=== PATIENT | male | born 1955 | race Caucasian/White ===

== ENCOUNTER 2016-06-12 15:13 | Emergency (ER) | payer OTHER ==
[~2016-06-12] VITALS: Ht 167.6 cm; Wt 54.4 kg
[~2016-06-12 15:13] MED LIST: AGGRENOX 25 MG1 EACH PO; AMOX-CLAV 875-1 EACH PO; AUGMENTIN 875875 MG PO; CIPRO 500MG TA500 MG PO; DEXILANT60 M1 PO; FLOMAX0.4 M1 PO; HCTZ-METOPROLOL1 TAB PO; KEFLEX500 MG PO; LISINOPRIL20 M1 PO; PERCOCET 325 MG1 TA2 PO; SIMVASTATIN40 M1 PO; TOPROL XL100 M1 PO; TYLENOL TAB 32325 MG PO
[2016-06-12 16:04] LABS: ABSOLUTE BASOPHIL COUNT 0 /CUMM (0.0-0.2); ABSOLUTE EOSINOPHIL COUNT 0 /CUMM (0.0-0.7); ABSOLUTE GRANULOCYTE CT 10.4 /CUMM (1.4-6.5); ABSOLUTE LYMPH COUNT 1.3 /CUMM (1.2-3.4); BASOPHIL % 0.3 % (0.0-2.0); EOSINOPHIL % 0.2 % (0-5); GRANULOCYTE % 81.6 % (42.2-75.2); HEMATOCRIT 41.7 % (42-52); MEAN CORPUSCULAR HGB 30.6 PG (27.0-31.0); MEAN CORPUSCULAR HGB CONC 33.2 G/DL (33.0-37.0); MEAN CORPUSCULAR VOLUME 92.1 FL (80.0-94.0); MEAN PLATELET VOLUME 9.3 FL (7.4-10.4); PLATELET COUNT 208 /CUMM (130-400); RBC DISTRIBUTION WIDTH 13.6 % (11.5-14.5); RED BLOOD CELL CT 4.53 /CUMM (4.70-6.10); WHITE BLOOD CELL COUNT 12.7 /CUMM (4.8-10.8)
--- NOTE | 2016-06-12 16:22 | ED AMS/SEIZURE/WEAK/DIZZY ---
History of Present Illness General Chief Complaint: Altered Mental Status Stated Complaint: BIBA FOR ?AMS Source: patient, family Exam Limitations: no limitations Vital Signs & Intake/Output Vital Signs & Intake/Output ED Intake and Output 06/13 0000 06/12 1200 Intake Total 0 Output Total Balance 0 Intake, Oral 0 Patient 120 lb Weight Weight Reported by Patient Measurement Method Allergies Coded Allergies: egg (DIRRHEA 06/12/16) Reconcile Medications Dexlansoprazole (Dexilant) 60 MG CAP.DR.BP 1 CAP PO DAILY GI (Reported) Dipyridamole W/ Aspirin (Aggrenox 25 MG-200 MG Capsule) 25 MG-200 MG CPMP.12HR 1 CAP PO BID BLOOD THINNER Doxycycline Hyclate 100 MG TABLET 1 TAB PO BID bronchitis/pna Lisinopril 20 MG TABLET 1 TAB PO DAILY BP (Reported) Metoprolol Succ XL (Toprol XL) 100 MG TAB.ER.24H 1 TAB PO DAILY blood pressure Simvastatin (Simvastatin*) 40 MG TABLET 1 TAB PO QPM CHOLESTEROL (Reported) Tamsulosin HCl (Flomax) 0.4 MG CAP.ER.24H 1 CAP PO DAILY PROSTATE (Reported) Triage Note: PT BIBA FROM HOME FOR AMS. PT'S VISITING NURSE SAW HIM TODAY AND NOTED HE WAS MORE ALTERED THAN USUAL. PT HAS HISTORY OF TIA AND MENTALLY CHALLENGED. PER REPORT, PT'S APARTMENT SMELLED OF URINE, PT ARRIVES INCONTINENT OF URINE. Triage Nurses Notes Reviewed? yes Onset: Abrupt Duration: day(s):, constant Timing: recent history No Modifying Factors: none HPI: 60-year-old male with a history of [place] was brought in for reportedly increased confusion for the past couple days. Patient was sent in by his nurse that comes in on Mondays to take care of him and felt that he was mildly more confused than usual because he did not recognize her. Patient lives by himself most of the days. There is been no reports of any fever chills vomiting or severe coughing abdominal pain. There is been no slurring of words or facial droop reported. The main confusion part was at the fact that the patient did not recognize his nurse. He has a history of MR. Denies any other associated symptoms. (ROX DE ANDA) Past History Travel History Traveled to [place] past 21 day No Medical History Any Pertinent Medical History? see below for history Neurological: TIA, MENTALLY CHALLENGED EENT: cataracts, glaucoma Cardiovascular: HTN, HIGH CHOLESTEROL Respiratory: asthma Gastrointestinal: diverticulitis, GERD, Reid's esophagus Hepatic: NONE Renal: benign prost hyperplasia Musculoskeletal: NONE Psychiatric: mentally challenged. 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 No (ROX DE ANDA) Review of Systems Review of Systems Constitutional: Reports: no symptoms. EENTM: Reports: no symptoms. Respiratory: Reports: no symptoms. Cardiovascular: Reports: no symptoms. GI: Reports: no symptoms. Genitourinary: Reports: no symptoms. Musculoskeletal: Reports: no symptoms. Skin: Reports: no symptoms. Neurological/Psychological: Reports: see HPI. Hematologic/Endocrine: Reports: no symptoms. Immunologic/Allergic: Reports: no symptoms. All Other Systems: Reviewed and Negative (ROX DE ANDA) Physical Exam Physical Exam General Appearance: well developed/nourished, no apparent distress, alert, awake Head: atraumatic, normal appearance Eyes: Left: other (chronic glaucoma). Right: PERRL. Ears, Nose, Throat: normal pharynx, normal ENT inspection, hearing grossly normal Neck: normal inspection, full range of motion Respiratory: normal breath sounds, no respiratory distress Cardiovascular: regular rate/rhythm Gastrointestinal: soft, non-tender Back: normal inspection Extremities: normal range of motion Neurologic/Psych: awake, alert, normal gait, normal mood/affect Skin: intact, normal color Core Measures ACS in differential dx? No CVA/TIA Diagnosis: No Severe Sepsis Present: No Septic Shock Present: No (ROX DE ANDA) Progress Differential Diagnosis: arrythmia, anemia, benign positional vertigo, CVA/stroke , dehydration, encephalitis, electrolyte imbalance, GI bleed, hypoglycemia, hypoxia, intracranial Hem., intracranial mass/tumor, meningitis, Meniere's disease, migraine LIN, multiple sclerosis, pneumonia, presyncope, post-traumatic vertigo, sepsis, seizure disorder, subarachnoid Hem., UTI/pyelo, vertebrobasilar insuff Plan of Care: Orders Procedure Date/time Status URINALYSIS 06/12 152 Complete TROPONIN LEVEL 06/12 152 Complete COMPREHENSIVE METABOLIC PANEL 06/12 152 Complete CBC WITHOUT DIFFERENTIAL 06/12 152 Complete EKG 06/12 152 Active Laboratory Tests 06/12/16 1655: Urine Color YEL, Urine Clarity CLEAR, Urine pH 6.0, Ur Specific [place] 1.015, Urine Protein NEG, Urine Ketones 15 H, Urine Nitrite NEG, Urine Bilirubin NEG, Urine Urobilinogen 0.2, Ur Leukocyte Esterase NEG, Ur Microscopic EXAM NOT REQUIRED, Urine Hemoglobin NEG, Urine Glucose NEG 06/12/16 1555: Anion Gap 12, Estimated GFR > 60, BUN/Creatinine Ratio 15.7, Glucose 93, Calcium 9.2, Total Bilirubin 0.6, AST 35, ALT 55, Alkaline Phosphatase 120, Troponin I < 0.01, Total Protein 7.6, Albumin 4.3, Globulin 3.3, Albumin/Globulin Ratio 1.3, CBC w Diff NO MAN DIFF REQ, RBC 4.53 L, MCV 92.1, MCH 30.6, RDW 13.6, MPV 9.3, Gran % 81.6 H, Lymphocytes % 10.3 L, Monocytes % 7.6, Eosinophils % 0.2, Basophils % 0.3, Absolute Granulocytes 10.4 H, Absolute Lymphocytes 1.3, Absolute Monocytes 1.0 H, Absolute Eosinophils 0, Absolute Basophils 0, PUBS MCHC 33.2 Diagnostic Imaging: Viewed by Me: CT Scan. Discussed w/RAD: CT Scan. Radiology Impression: SERVICE DATE: 06/12/16-1543 EXAM TYPE: CAT - CT HEAD WO IV CONTRAST EXAMINATION: CT HEAD WITHOUT CONTRAST CLINICAL INFORMATION: Altered mental status. Rule out CVA. COMPARISON: 01/19/2016 (MRI) and CT dated 2015 TECHNIQUE: Contiguous axial imaging was performed from the skull base to vertex without intravenous administration of contrast. Examination is somewhat limited due to motion artifact, most notably through the skull base. Motion artifact is present on repeated images through this region. DLP: 815.4 mGy-cm FINDINGS: There is no evidence of acute intracranial hemorrhage or territorial infarction. No abnormal mass effect or midline shift is seen. Dueñas to white matter differentiation is well preserved. No extra-axial fluid collections are identified. The ventricles are normal in size. Multiple areas of hypoattenuation in the subcortical and periventricular white matter are present, most commonly attributable to chronic microangiopathic changes. Encephalomalacia in the subinsular regions is again noted. The evaluation of the temporal poles is somewhat limited due to artifact from patient motion. The osseous structures and soft tissues are normal. The mastoid air cells and visualized portions of the paranasal sinuses are well aerated. IMPRESSION: No acute intracranial pathology. Evaluation level of the skull base is limited due to motion artifact. Moderate chronic microangiopathic white matter changes DICTATED BY: DOREEN SAAVEDRA MD DATE /TIME DICTATED:06/12/161640 GUEST SERVICES:[facility] Initial ED EKG: normal intervals, normal p-waves, normal sinus rhythm, rate (98) Comments: 06/12/2016 6:13:34 PM There is no focal signs of infection. Due to very mild cough patient covered with doxycycline. He clinically does not appear toxic appearing and is in no apparent distress. Patient able to ambulate here in the emergency room at his normal baseline. Safe to be discharged at this time. Follow-up with primary care doctor. pt seen and evlauated by dr reeder. ([facility]) Departure Departure Disposition: HOME OR SELF CARE Condition: Stable Clinical Impression Primary Impression: Altered mental status Referrals: FREDIS PAYNE,NANO Antoine (PCP/Family) Additional Instructions: Follow-up with primary care doctor. Return if any concerns worsening symptoms. Please go over all results of today's visit with your primary care doctor. Contact your primary care doctor to let them know you were here in the emergency room. There may be nonspecific findings which may not be related to your visit today here in the emergency room but may require further evaluation and chronic monitoring by your primary care doctor. If you had a laceration today the chance of foreign body always remains. You should follow-up with your primary care doctor for recheck in 3-5 days for a wound check. If you had an x-ray done there is a chance that a fracture could have been missed on initial read and you should follow-up with your primary care doctor for repeat x-rays if symptoms persist. If your blood pressure was elevated here in the emergency room please have rechecked by her primary care doctor within the next 48 hours by your primary care doctor. If you were prescribed a narcotic here in the emergency room or any type of controlled substances you're not allowed to drive while taking this medication or operate any type of heavy machinery. Narcotics can make you feel lightheaded dizziness nausea and can cause constipation. You may need to [employer] a stool softener. Thank you for choosing [facility] emergency room. Please return to the emergency room immediately if you have any other concerns worsening of symptoms. Departure Forms: Customer Survey General Discharge Information Prescriptions: Current Visit Scripts Doxycycline Hyclate 1 TAB PO BID #20 TAB (ROX DE ANDA) PA/DBA Co-Sign Statement Statement: ED Attending supervision documentation- [X] I saw and evaluated the patient. I have also reviewed all the pertinent lab results and diagnostic results. I agree with the findings and the plan of care as documented in the PA's/DBA's documentation. [] I have reviewed the ED Record and agree with the PA's/DBA's documentation. [] Additions or exceptions (if any) to the PAs/DBA's note and plan are summarized below: [] (OLGA REEDER DO) PA/DBA Co-Sign Statement Statement: ED Attending supervision documentation- [X] I saw and evaluated the patient. I have also reviewed all the pertinent lab results and diagnostic results. I agree with the findings and the plan of care as documented in the PA's/DBA's documentation. [] I have reviewed the ED Record and agree with the PA's/DBA's documentation. [] Additions or exceptions (if any) to the PAs/DBA's note and plan are summarized below: [] (OLGA REEDER DO)
--- NOTE | 2016-06-12 16:50 | CT SCAN REPORT ---
EXAMINATION: CT HEAD WITHOUT CONTRAST CLINICAL INFORMATION: Altered mental status. Rule out CVA. COMPARISON: 01/19/2016 (MRI) and CT dated 01/18/2016 TECHNIQUE: Contiguous axial imaging was performed from the skull base to vertex without intravenous administration of contrast. Examination is somewhat limited due to motion artifact, most notably through the skull base. Motion artifact is present on repeated images through this region. DLP: 815.4 mGy-cm FINDINGS: There is no evidence of acute intracranial hemorrhage or territorial infarction. No abnormal mass effect or midline shift is seen. Dueñas to white matter differentiation is well preserved. No extra-axial fluid collections are identified. The ventricles are normal in size. Multiple areas of hypoattenuation in the subcortical and periventricular white matter are present, most commonly attributable to chronic microangiopathic changes. Encephalomalacia in the subinsular regions is again noted. The evaluation of the temporal poles is somewhat limited due to artifact from patient motion. The osseous structures and soft tissues are normal. The mastoid air cells and visualized portions of the paranasal sinuses are well aerated. IMPRESSION: No acute intracranial pathology. Evaluation level of the skull base is limited due to motion artifact. Moderate chronic microangiopathic white matter changes
[2016-06-12 17:50] VITALS: BP 128/70
[2016-06-12] MEDS ORDERED: DOXYCYCLINE HY100 M4 PO (18:11)
== END 2016-06-12 18:26 ==
LOC: ERH 15:13
PROVIDERS: Physician Assistant Medical
DX: R41.82 Altered mental status, unspecified (principal)
CPT/HCPCS: 81003; 93005; 93010

== ENCOUNTER 2016-07-28 09:46 | Observation (INO) | payer OTHER ==
[~2016-07-28] VITALS: Ht 167.6 cm; Wt 54.4 kg
[~2016-07-28 09:46] MED LIST changes: +DOXYCYCLINE HY100 M4 PO
--- NOTE | 2016-07-28 09:59 | ED GENERAL ADULT ---
History of Present Illness General Chief Complaint: Altered Mental Status Stated Complaint: AMS Source: patient, family Exam Limitations: clinical condition, confusion, dementia, poor historian Vital Signs & Intake/Output Vital Signs & Intake/Output Vital Signs Date Time Temp Pulse Resp B/P B/P Pulse O2 O2 Flow FiO2 Mean Ox Delivery Rate 07/29 2015 98.5 98 18 138/100 97 Room Air 07/28 1855 97.3 92 18 154/86 96 Room Air 07/28 1613 98.9 108 18 141/80 95 Room Air 07/28 1331 97.2 99 18 119/76 95 Room Air 07/28 0951 98.0 112 20 111/77 95 Room Air Allergies Coded Allergies: egg (DIRRHEA 06/12/16) Reconcile Medications Dexlansoprazole (Dexilant) 60 MG CAP.DR.BP 1 CAP PO DAILY GI (Reported) Dipyridamole W/ Aspirin (Aggrenox 25 MG-200 MG Capsule) 25 MG-200 MG CPMP.12HR 1 CAP PO BID BLOOD THINNER Lisinopril 20 MG TABLET 1 TAB PO DAILY BP (Reported) Metoprolol Succ XL (Toprol XL) 100 MG TAB.ER.24H 1 TAB PO DAILY blood pressure Simvastatin (Simvastatin*) 40 MG TABLET 1 TAB PO QPM CHOLESTEROL (Reported) Tamsulosin HCl (Flomax) 0.4 MG CAP.ER.24H 1 CAP PO DAILY PROSTATE (Reported) Triage Nurses Notes Reviewed? yes HPI: 07/28/16 61-year-old man presents to the emergency department for altered mental status right lower extremity weakness. According to the family, a doorknocker checked on him today and found him on the floor. It is unclear what time he fell but they did hear a thump. The patient was confused and brought to the emergency department for evaluation. The onset of the symptoms was abrupt, the duration is really unclear, the severity is significant as his symptoms required him to come to the emergency department for care. Past History Travel History Traveled to [place] past 21 day No Medical History Any Pertinent Medical History? see below for history Neurological: TIA, MENTALLY CHALLENGED EENT: cataracts, glaucoma Cardiovascular: HTN, HIGH CHOLESTEROL Respiratory: asthma Gastrointestinal: diverticulitis, GERD, Reid's esophagus Hepatic: NONE Renal: benign prost hyperplasia Musculoskeletal: NONE Psychiatric: mentally challenged. 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 No Review of Systems Review of Systems Constitutional: Denies: fever. EENTM: Reports: no symptoms. Respiratory: Denies: short of breath. Cardiovascular: Denies: chest pain. GI: Denies: abdominal pain. Genitourinary: Reports: no symptoms. Musculoskeletal: Reports: no symptoms. Skin: Denies: rash. Neurological/Psychological: Reports: anxiety, paresthesia, weakness. Hematologic/Endocrine: Denies: bruising, bleeding. Physical Exam Physical Exam General Appearance: alert, awake, anxious, moderate distress Head: atraumatic Eyes: Bilateral: other (irregular pupil left eye). Ears, Nose, Throat: normal pharynx Neck: normal inspection, supple Respiratory: normal breath sounds, chest non-tender, no respiratory distress Cardiovascular: regular rate/rhythm Peripheral Pulses: 4+ radial (R), 4+ radial (L) Gastrointestinal: non-tender Back: normal range of motion Extremities: pedal edema Neurologic/Psych: awake, alert, motor weakness Skin: intact, normal color, warm/dry Core Measures ACS in differential dx? No CVA/TIA Diagnosis: Yes NIH Stroke Scale: Total 5 Dt/Tm Last Known Well: No Date Last Known Well: 07/28/16 Neurological S/S of CVA: Acute Confusion, Dizziness, Difficulty Speaking, Weakness of Limb Symptom start date: 07/28/16 Reason tPA not ordered: Medical Contraindication Severe Sepsis Present: No Septic Shock Present: No Comment: The patient had a gag reflex and tolerated water Progress Differential Diagnoses I considered the following diagnoses in my evaluation of the patient: [TIA, CVA, intracranial bleed] Plan of Care: Orders Procedure Date/time Status Heart Healthy Diet 07/29 B Active Heart Healthy Diet 07/28 D Complete Teach/Educate 07/29 2027 Active Pain Treatment and Response 07/29 2027 Active Nutritional Intake, Monitor 07/29 2027 Active Isolation 07/29 2027 Active Patient Care Conference 07/29 2027 Active Activity/Ambulation 07/29 2027 Active Patient Data 07/28 1820 Active ED Holding Orders 07/28 1734 Active Vital Signs 07/28 1734 Active Code Status 07/[address] in observation 07/28 1733 Active Intake & Output 07/28 1349 Active Add-on Test (ER Only) 07/28 1018 Active TROPONIN LEVEL 07/28 1005 Complete PROTHROMBIN TIME 07/28 1005 Complete COMPREHENSIVE METABOLIC PANEL 07/28 1003 Complete CBC WITHOUT DIFFERENTIAL 07/28 1003 Complete EKG 07/28 1003 Active Laboratory Tests 07/28/16 1100: Anion Gap 11, Estimated GFR > 60, BUN/Creatinine Ratio 18.6, Glucose 97, Calcium 9.4, Total Bilirubin 0.4, AST 47, ALT 90 H, Alkaline Phosphatase 138 H, Troponin I < 0.01, Total Protein 7.4, Albumin 4.3, Globulin 3.1, Albumin/ Globulin Ratio 1.4, PT 11.5, INR 1.10 07/28/16 1005: CBC w Diff NO MAN DIFF REQ, RBC 4.39 L, MCV 92.5, MCH 30.8, RDW 12.6, MPV 9.3, Gran % 82.7 H, Lymphocytes % 9.7 L, Monocytes % 7.1, Eosinophils % 0.3, Basophils % 0.2, Absolute Granulocytes 10.1 H, Absolute Lymphocytes 1.2, Absolute Monocytes 0.9 H, Absolute Eosinophils 0, Absolute Basophils 0, PUBS MCHC 33.3 Initial ED EKG: sinus tachycardia, left axis deviation, nonspecific ST-T wave abnormalities Comments: CT scan of the head was unremarkable MRI showed no ischemic changes The patient continued to have right lower extremity weakness. He was subsequently placed in observation for neuro checks every 6 hours, neurology consultation, and fall risk monitoring. Departure Departure Disposition: STILL A PATIENT Condition: Stable Clinical Impression Primary Impression: TIA (transient ischemic attack) Referrals: FREDIS PAYNE,NANO Antoine (PCP/Family) Departure Forms: Customer Survey General Discharge Information Observation Note Spoke With: SUDEEP PAYNE,AMARI Physician Advisor Notified: PHIL PAYNE,MARY Antoine Place Patient In: Non-ED OBS Care Area Rationale for Observation: My rational for observation is as follows [neuro checks every 6 hours, telemetry monitoring, fall risk monitoring,]. Critical Care Note Critical Care Note Critical Care Time: non-applicable
--- NOTE | 2016-07-28 10:03 | NUR ---
PT TO ROOM 20 ON ARRIVAL. PT PLACED ON SAIL MAKER FOR EVAL, LABS DRAWN AND SENT, EKG DONE. PT UNDRESSED AND PLACED IN GOWN
--- NOTE | 2016-07-28 10:03 | NUR ---
PT BIBA FROM HOME FOR AMS. PT WAS LAST SEEN AT [facility] YESTERDAY. PT LIVES IN [facility] AND WAS FOUND TODAY ON THE FLOOR BY A DUARTEIGLENNY. PT HAS A HX OF TIAS AND MR. PT AMS IMPROVED ENROUTE PER EMS. PT ARRIVES TO ED ALERT BUT CONFUSED. PT KNOWS HE IS IN ER BUT DOES NOT RECALL TH YEAR. PT DENIES ANY COMPLAINTS. VSS
--- NOTE | 2016-07-28 10:16 | NUR ---
PT MORE ALERT AT THIS TIME , PT ALERT TO PERSON AND PLACE. PER SISTER AT BEDSIDE PT ACTING AT [facility]. PT WAS A ? FALL AT HOME FOUND ON FLOOR. PT DOES NOT RECALL WHAT HAPPEN. PT DENIES ANY INJURY OR PAIN. PT HAS NO OBVIOUS INJURY OR DEFORMITY UPON ASSESSMENT. PT AWAITNG LAB RESULTS AND CT SCAN
[2016-07-28 10:19] LABS: ABSOLUTE BASOPHIL COUNT 0 /CUMM (0.0-0.2); ABSOLUTE EOSINOPHIL COUNT 0 /CUMM (0.0-0.7); ABSOLUTE GRANULOCYTE CT 10.1 /CUMM (1.4-6.5); ABSOLUTE LYMPH COUNT 1.2 /CUMM (1.2-3.4); ABSOLUTE MONOCYTE COUNT 0.9 /CUMM (0.10-0.60); BASOPHIL % 0.2 % (0.0-2.0); EOSINOPHIL % 0.3 % (0-5); GRANULOCYTE % 82.7 % (42.2-75.2); HEMATOCRIT 40.7 % (42-52); MEAN CORPUSCULAR HGB 30.8 PG (27.0-31.0); MEAN CORPUSCULAR HGB CONC 33.3 G/DL (33.0-37.0); MEAN CORPUSCULAR VOLUME 92.5 FL (80.0-94.0); MEAN PLATELET VOLUME 9.3 FL (7.4-10.4); PLATELET COUNT 246 /CUMM (130-400); RBC DISTRIBUTION WIDTH 12.6 % (11.5-14.5); RED BLOOD CELL CT 4.39 /CUMM (4.70-6.10); WHITE BLOOD CELL COUNT 12.2 /CUMM (4.8-10.8)
--- NOTE | 2016-07-28 10:25 | NUR ---
LAB CALLED AND NEEDS A REDRAW OF THE BLUE TOP AND SST TUBE
--- NOTE | 2016-07-28 10:26 | NUR ---
PT TO CT SCAN WITH JAI ALAI PLAYER
--- NOTE | 2016-07-28 11:00 | NUR ---
PT BACK FROM CT WITH GAS ATTENDANT, SST AND BLUE TOP REDRAWN BY MST
--- NOTE | 2016-07-28 11:01 | CT SCAN REPORT ---
EXAMINATION: CT HEAD WITHOUT CONTRAST CLINICAL INFORMATION: Altered mental status COMPARISON: 06/12/2016 TECHNIQUE: Contiguous axial imaging was performed from the skull base to vertex without intravenous contrast. DLP: 807 mGy-cm. FINDINGS: Motion somewhat limits the evaluation. There is no evidence of acute intracranial hemorrhage or territorial infarction. No abnormal mass effect or midline shift is seen. Dueñas to white matter differentiation is well preserved. No extra-axial fluid collections are identified. No hydrocephalus. Proportional prominence of the ventricles and sulcal spaces is consistent with mild volume loss. Patchy periventricular and deep white matter hypoattenuation is consistent with moderate small vessel ischemic changes. The osseous structures and soft tissues are normal. There is mild opacification of the ethmoid air cells. Minimal opacification of the left maxillary sinus. The mastoid air cells and visualized portions of the paranasal sinuses are otherwise well aerated. IMPRESSION: No acute intracranial pathology. Mild volume loss with moderate small vessel ischemic changes.
--- NOTE | 2016-07-28 11:04 | NUR ---
SST AND BLUE TOP SENT AT THIS TIME.
[2016-07-28 11:14] LABS: PT 11.5 SEC (9.4-12.5)
--- NOTE | 2016-07-28 13:48 | NUR ---
FOOD TRAY ORDERED.
--- NOTE | 2016-07-28 15:22 | NUR ---
PT TO MRI BY STRETCHER.
--- NOTE | 2016-07-28 16:06 | NUR ---
PT RETURNED FORM MRI, AWAITING RESULTS.
--- NOTE | 2016-07-28 16:28 | MRI REPORT ---
EXAMINATION: MR BRAIN WITHOUT CONTRAST CLINICAL INFORMATION: Altered mental status. COMPARISON: Head CT from earlier the same day. MRI of the brain from 01/19/2016 TECHNIQUE: MRI of the brain without contrast was obtained using routine sequences. FINDINGS: The study is motion degraded. The axial T2-weighted images are nondiagnostic. No acute brain ischemia. No evidence of susceptibility artifact to suggest acute or chronic blood products. There is moderate scattered T2 prolongation in the bihemispheric white matter, similar in extent and configuration to 01/19/2016. Moderate generalized prominence of the ventricles, sulci, and extra-axial CSF spaces, stable from the prior. Chronic lacunar infarct in the left frontal periventricular white matter, stable. Prominent perivascular spaces versus encephalomalacia in the subinsular regions is stable. No extra-axial collection, mass effect, shift of the normally midline structures. The craniocervical junction and supersellar region are unremarkable. Marrow signal is maintained. No gross fluid levels in the paranasal sinuses. IMPRESSION: Motion degraded study. No acute brain ischemia is visualized. 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 Stable chronic lacune within the left frontal periventricular white matter.
--- NOTE | 2016-07-28 16:55 | NUR ---
HEART HEALTHY DINNER TRAY ORDERED FROM [facility] IN [facility].
--- NOTE | 2016-07-28 18:51 | History & Physical ---
General Information and HPI Allergies/Medications Allergies: Coded Allergies: egg (DIRRHEA 06/12/16) Home Med list Dexlansoprazole (Dexilant) 60 MG CAP.DR.BP 1 CAP PO DAILY GI (Reported) Dipyridamole W/ Aspirin (Aggrenox 25 MG-200 MG Capsule) 25 MG-200 MG CPMP.12HR 1 CAP PO BID BLOOD THINNER Lisinopril 20 MG TABLET 1 TAB PO DAILY BP (Reported) Metoprolol Succ XL (Toprol XL) 100 MG TAB.ER.24H 1 TAB PO DAILY blood pressure Simvastatin (Simvastatin*) 40 MG TABLET 1 TAB PO QPM CHOLESTEROL (Reported) Tamsulosin HCl (Flomax) 0.4 MG CAP.ER.24H 1 CAP PO DAILY PROSTATE (Reported) Past History Travel History Traveled to [place] past 21 day No Medical History Neurological: TIA, MENTALLY CHALLENGED EENT: cataracts, glaucoma Cardiovascular: HTN, HIGH CHOLESTEROL Respiratory: asthma Gastrointestinal: diverticulitis, GERD, Reid's esophagus Hepatic: NONE Renal: benign prost hyperplasia Musculoskeletal: NONE Psychiatric: mentally challenged. 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 sister Services at Home: Nursing Primary Language: Kyrgyz Functional Ability ADLs Needs Assist: dressing, eating, toileting, bathing. IADLs Needs Assist: shopping, housework, finances, food prep, telephone, transportation, medication admin. Core Measures/Miscellaneous Sepsis (View Protocol) Severe Sepsis Present: No Septic Shock Septic Shock Present: No
--- NOTE | 2016-07-28 19:04 | NUR ---
[facility] ASSIGNMENT [id number]
--- NOTE | 2016-07-28 19:23 | NUR ---
REPORT GIVEN TO DESEAN ARANGO TO TELE.
[2016-07-28 20:16] VITALS: BP 138/100
--- NOTE | 2016-07-28 20:27 | History & Physical ---
CALEB NEVAREZ 07/28/162026: General Information and HPI MD Statement: I have seen and personally examined VINITA CABRERA and documented this H&P. The patient is a 61 year old M who presented with a patient stated chief complaint of syncope Source of Information: patient, old records Exam Limitations: poor historian History of Present Illness: 60-year-old gentleman with with past medical history significant for history of syncope, hypertension, hyperlipidemia, TIA, GERD, diverticulitis, BPH, Reid's esophagus, sigmoid vesicular fistula, BIBA after he was found on the floor. He is a poor historian. He does not remember falling. Reports feeling dizzy in the morning. He denies chest pain, blurred vision, palpitations, nausea, vomiting, abdominal pain, or weakness. Reports drinking 4 beers everynight to sleep. Allergies/Medications Allergies: Coded Allergies: egg (DIRRHEA 06/12/16) Home Med list Dexlansoprazole (Dexilant) 60 MG CAP.DRJuan JBP 1 CAP PO DAILY GI (Reported) Dipyridamole W/ Aspirin (Aggrenox 25 MG-200 MG Capsule) 25 MG-200 MG CPMP.12HR 1 CAP PO BID BLOOD THINNER Lisinopril 20 MG TABLET 1 TAB PO DAILY BP (Reported) Metoprolol Succ XL (Toprol XL) 100 MG TAB.ER.24H 1 TAB PO DAILY blood pressure Simvastatin (Simvastatin*) 40 MG TABLET 1 TAB PO QPM CHOLESTEROL (Reported) Tamsulosin HCl (Flomax) 0.4 MG CAP.ER.24H 1 CAP PO DAILY PROSTATE (Reported) Compliance With Home Meds: UNKNOWN Observation Initial Note - I have personally examined VINITA CABRERA on 07/29/16 at 0528. The disposition of VINITA CABRERA is uncertain at this time and before a determination can be made, he requires a period of observation for the following reasons syncope r/o acs, seizures Past History Travel History Traveled to [place] past 21 day No Medical History Neurological: TIA, MENTALLY CHALLENGED EENT: cataracts, glaucoma Cardiovascular: HTN, HIGH CHOLESTEROL Respiratory: asthma Gastrointestinal: diverticulitis, GERD, Reid's esophagus Hepatic: NONE Renal: benign prost hyperplasia Musculoskeletal: NONE Psychiatric: mentally challenged. 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 sister Services at Home: Nursing Primary Language: Wallisian Functional Ability ADLs Needs Assist: dressing, eating, toileting, bathing. Ambulation: independent IADLs Needs Assist: shopping, housework, finances, food prep, telephone, transportation, medication admin. Review of Systems Review of Systems Constitutional: Denies: chills, diaphoresis, fever, malaise, weakness, unexplained weight loss. Cardiovascular: Denies: chest pain, edema, orthopena, palpitations, peripheral edema, syncope. Respiratory: Denies: cough, hemoptysis, orthopnea, short of breath, sputum production, stridor, wheezing. Exam & Diagnostic Data Last 24 Hrs of Vital Signs/I&O Vital Signs Date Time Temp Pulse Resp B/P B/P Pulse O2 O2 Flow FiO2 Mean Ox Delivery Rate 07/29 0259 132/82 07/29 2015 98.5 98 18 138/100 97 Room Air 07/28 1855 97.3 92 18 154/86 96 Room Air 07/28 1613 98.9 108 18 141/80 95 Room Air 07/28 1331 97.2 99 18 119/76 95 Room Air 07/28 0951 98.0 112 20 111/77 95 Room Air Intake & Output 07/29 0800 07/29 0000 07/28 1600 Intake Total 250 Output Total Balance 250 Intake, IV 0 Intake, Oral 250 Number 0 Bowel Movements Patient 120 lb Weight Physical Exam General Appearance Alert, Oriented X3, Cooperative, cachetic Cardiovascular Regular Rate, Normal S1, Normal S2 Lungs Clear to Auscultation, Normal Air Movement Abdomen Normal Bowel Sounds, Soft Extremities No Edema Last 24 Hrs of Labs/Carlos: Laboratory Tests 07/29/16 0145: Anion Gap 14, Estimated GFR > 60, BUN/Creatinine Ratio 22.9, Phosphorus 3.7, Magnesium 1.8 07/28/16 1100: Anion Gap 11, Estimated GFR > 60, BUN/Creatinine Ratio 18.6, Glucose 97, Calcium 9.4, Total Bilirubin 0.4, AST 47, ALT 90 H, Alkaline Phosphatase 138 H, Troponin I < 0.01, Total Protein 7.4, Albumin 4.3, Globulin 3.1, Albumin/ Globulin Ratio 1.4, PT 11.5, INR 1.10 07/28/16 1005: CBC w Diff NO MAN DIFF REQ, RBC 4.39 L, MCV 92.5, MCH 30.8, RDW 12.6, MPV 9.3, Gran % 82.7 H, Lymphocytes % 9.7 L, Monocytes % 7.1, Eosinophils % 0.3, Basophils % 0.2, Absolute Granulocytes 10.1 H, Absolute Lymphocytes 1.2, Absolute Monocytes 0.9 H, Absolute Eosinophils 0, Absolute Basophils 0, PUBS MCHC 33.3 Diagnostic Data EKG Results artifact Other Results CT HEAD WO IV CONTRAST FINDINGS: Motion somewhat limits the evaluation. There is no evidence of acute intracranial hemorrhage or territorial infarction. No abnormal mass effect or midline shift is seen. Dueñas to white matter differentiation is well preserved. No extra-axial fluid collections are identified. No hydrocephalus. Proportional prominence of the ventricles and sulcal spaces is consistent with mild volume loss. Patchy periventricular and deep white matter hypoattenuation is consistent with moderate small vessel ischemic changes. The osseous structures and soft tissues are normal. There is mild opacification of the ethmoid air cells. Minimal opacification of the left maxillary sinus. The mastoid air cells and visualized portions of the paranasal sinuses are otherwise well aerated. IMPRESSION: No acute intracranial pathology. Mild volume loss with moderate small vessel ischemic changes. SERVICE DATE: 07/28/16 EXAM TYPE: MRI - MRI-HEAD W/O MANJEET FINDINGS: The study is motion degraded. The axial T2-weighted images are nondiagnostic. No acute brain ischemia. No evidence of susceptibility artifact to suggest acute or chronic blood products. There is moderate scattered T2 prolongation in the bihemispheric white matter, similar in extent and configuration to 01/19/2016. Moderate generalized prominence of the ventricles, sulci, and extra-axial CSF spaces, stable from the prior. Chronic lacunar infarct in the left frontal periventricular white matter, stable. Prominent perivascular spaces versus encephalomalacia in the subinsular regions is stable. No extra-axial collection, mass effect, shift of the normally midline structures. The craniocervical junction and supersellar region are unremarkable. Marrow signal is maintained. No gross fluid levels in the paranasal sinuses. IMPRESSION: Motion degraded study. No acute brain ischemia is visualized. 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 Stable chronic lacune within the left frontal periventricular white matter. Assessment/Plan Assessment: 60-year-old gentleman with with past medical history significant for history of syncope, hypertension, hyperlipidemia, TIA, GERD, diverticulitis, BPH, Reid's esophagus, sigmoid vesicular fistula. CT head neg for bleed, MRI r/o acute infarct. Prob list: syncope HTN TIA assessment: will admit to tele floor q2 neuro checks IV ativan per CIWA protocol cardio consult in am. As Ranked By This Provider Problem List: 1. Syncope Core Measures/Miscellaneous Acute Coronary Syndrome ACS Diagnosis: No Cerebrovascular Accident CVA/TIA Diagnosis: No Congestive Heart Failure CHF Diagnosis: No VTE (View Protocol) VTE Risk Factors: Age > [address] [facility] prophylaxis d/t: No contraindications No VTE Pharm Prophylaxis d/t: No contraindications VTE Diagnosis: No VTE Type: NONE VTE Confirmed by (Test): NONE Sepsis (View Protocol) Severe Sepsis Present: No Septic Shock Septic Shock Present: No Miscellaneous Documentation Attending Case Discussed With: LILY ALVARENGA MD Primary Care Physician: NANO MCNEAL MD Patient sees these Specialists neurology Level of Patient Care: Telemetry JESSICA KRISHNAMURTHY MD 07/28/16 2393: Resident Review Statement Resident Statement: examined this patient, discussed with real estate intern, agreed with real estate intern Other Findings: 61 yo M with pmh of mental retardation functional at baseline, hypertension, hyperlipidemia, GERD, diverticulitis, BPH, Reid's esophagus, and sigmoid vesical fistula who presents today after being found on the floor in his apartment this morning. He does not recall the fall but endorses that he frequently feels lightheaded and dizzy in the morning. which he says feels like he is having anxiety attacks. He has laso had a couple of syncopal episodes this year already. He denies chest pain, blurred vision, palpitations, nausea, vomiting, abdominal pain, or weakness. According to the ER notes, when patient was brought to the hospital he had some right-sided weakness which seemed to have totally resolved while in the ED. He was previously admitted here at [facility] in 2016 with episodes of dizziness and slurred speech and was treated for a TIA thought to be possibly a microinfarct as no positive lesion was evident on the MRI. He drinks 4 beers every night to help him sleep. Problem List 1. Possible TIA vs Seizures 2. Multiple unwitnessed syncopal episodes r/o Paroxysmal afib 3. HTN 4. HLD 5. Chronic Etoh Use Plan Place on observation on telemetry Continue with his currentdose of WILLIAM inhibitor Hold aggrenox and start aspirin and plavix per attending Neuro consult Cardio consult Obtain an EEG Increase statin dose to 80mg daily IV hydration Resume his impt home medications CIWA protocol ativan in case of withdrawal PT consult Check orthostats Give MVI/thiamine/Folate Obtain a detailed PMH and current medical history from sister who is his POA in AM Melatonin for sleep Pain pathway Heart healthy diet SC lovenox for DVT ppx FC AMARI SHEETS MD 07/29/16 1619: Attending MD Review Statement Attending Statement Attending MD Statement: examined this patient, discuss w/resident/PA/SURFACE PLATE INSPECTOR, agreed w/resident/PA/SURFACE PLATE INSPECTOR, reviewed EMR data (avail), discussed with case mgmt, reviewed images, amended to note Attending Assessment/Plan: The patient is a 61 yo male with h/o TIA, HTN, GERD, BPH, Reid's esophagus who presented in the ED after being found on floor at home. The patient is not aware of events. ED physician informed me that he was confused and had right sided weakness on presentation that resolved quickly. Has h/o TIA in past and is on Aggrenox. At the time of my exam the patient denied any headache, fevers, weakness, chest pain, palpitations or abdominal pain. He did state he drinks a few beers each evening. Has been compliant with his medications. CT and MRI of head done in ED showed no acute CVA (?old lacunar). Has had previous neg carotid US and ECHO. Physical Exam: VS: T 98.0, P 112-98, R 18, BP 11/77-132/82, PO 97% RA HEENT: eyes- PERRLA, EOMI anjel- dry mucosa Neck: supple, no bruits or JVD Chest: decreased BS, clear Cor: RRR, nl S1, S2 w/o murm Abd: BS+, soft, NT Ext: no edema Neuro: alert & oriented x 3 (poor historian), non-focal exam Labs/Tests- as above Impression/Plan: #S/P Falll- ? transient right sided weakness that resolved (per ED physician) and confusion. Possible recurrent TIA on low dose Simvastatin and Aggrenox per Neuro since last event. No focal deficits at present and no acute CVA on MRI/CT done in ED. Had recent neg carotid US and ECHO. Plan: Bring in as observation to telemetry floor and monitor for arrhythmia. Will d/c Aggrenox and begin ASA/Plavix. Will d/c Simvastatin and change to Atorvastatin 80 mg daily at present. q4hr checks. Neurology consult. PT consult. #HTN- BP is good as above. Plan: Continue Lisinopril and Metoprol with BP parameters (maintain BP systolic 130+). #Hyperlipidemia- as above on Simvastatin. Plan: Will give Atorvastatin at high dose at present and consider decreasing dose pending Neurology input. #BPH- on Tamsulosin- may contribute to orthostasis, however patient denies orthostatic symptoms. Plan: Continue Tamsulosin. #GERD- n Dexilant. Plan: Substitute Omeprazole while in hospital.
[2016-07-29 02:59] VITALS: BP 132/82
[2016-07-29 05:04] LABS: ABSOLUTE BASOPHIL COUNT 0 /CUMM (0.0-0.2); ABSOLUTE EOSINOPHIL COUNT 0.1 /CUMM (0.0-0.7); ABSOLUTE GRANULOCYTE CT 8.8 /CUMM (1.4-6.5); BASOPHIL % 0.3 % (0.0-2.0); EOSINOPHIL % 0.5 % (0-5); GRANULOCYTE % 73.8 % (42.2-75.2); HEMATOCRIT 40.3 % (42-52); MEAN CORPUSCULAR HGB 30.5 PG (27.0-31.0); MEAN CORPUSCULAR VOLUME 92.3 FL (80.0-94.0); MEAN PLATELET VOLUME 8.9 FL (7.4-10.4); PLATELET COUNT 224 /CUMM (130-400); RBC DISTRIBUTION WIDTH 12.8 % (11.5-14.5); RED BLOOD CELL CT 4.37 /CUMM (4.70-6.10); WHITE BLOOD CELL COUNT 11.9 /CUMM (4.8-10.8)
--- NOTE | 2016-07-29 05:18 | Event Note ---
Event Note Event Note: S:Around 4:26 am RR was called as patient was not responding. On assessment he was not answering questioning, no tonic clonic movement were noted however he was noted to be incontinent of urine this episode lasted about 10mins. After the episode he was yawning, and seemed confused. vitals: temp 97 BP: 140/78, FS:106 saturating 97% not anwering questions in position O/E CVS: s1s2,tachycardic RS: CTA ABD: soft nontender B: 60-year-old gentleman with with past medical history significant for history of syncope, hypertension, hyperlipidemia, TIA, GERD, diverticulitis, BPH, Reid's esophagus, sigmoid vesicular fistula, BIBA after he was found on the floor. CT/MRI r/o bleed and acute infarct A most likely seizure (? disorder vs ETOH induced ) After the episode, he verbalized that he had history of Seizure as a child R: seizure precautions Ordered CBC,bep,trop/ekg, PL, CXR, EEG neuro consult placed for am IV ativan Prn Called and informed family, sister is not sure about the history of seizure. They have noticed however this past year after episodes of syncope, he seemed confused.
--- NOTE | 2016-07-29 05:43 | PN- Housestaff ---
Subjective Follow-up For: Syncope, possible Seizures, TIA Complaints: no complaints Tele-Events Since Last Visit: NSR/ST. Went up to 140/150 once during the night Subjective: Patient is sleeping calmly in bed. Patient was noted early this morning to have what looked like a seizure. Patient was found wondering into the hallway, confused, nonverbal and incontinent of urine. On helping him back to bed he layed in a position with both hands tucked between his legs, he looked flushed and was mumbling but made no tonic or clonic movemnents. The episode lasted about 3-5 minutes. Vitals remained stable and patient slowly recovered, becoming more alert but confused. He became totally awake and alert and oriented many minutes later and was able to communicate. He had a second episode shortly thereafter and was medicated with intravenous Ativan with resolution of the seizure. Review of Systems Constitutional: Reports: no symptoms. Objective Last 24 Hrs of Vital Signs/I&O Vital Signs Date Time Temp Pulse Resp B/P B/P Pulse O2 O2 Flow FiO2 Mean Ox Delivery Rate 07/29 0434 96 Nasal 2.0L Cannula 07/29 0259 132/82 07/29 2015 98.5 98 18 138/100 97 Room Air 07/28 1855 97.3 92 18 154/86 96 Room Air 07/28 1613 98.9 108 18 141/80 95 Room Air 07/28 1331 97.2 99 18 119/76 95 Room Air 07/28 0951 98.0 112 20 111/77 95 Room Air Intake & Output 07/29 1600 07/29 0800 07/29 0000 Intake Total 300 250 Output Total Balance 300 250 Intake, IV 150 0 Intake, Oral 150 250 Number 0 0 Bowel Movements Patient 120 lb Weight Physical Exam General Appearance: Alert, Cooperative, No Acute Distress, sleeping but arousable HEENT: PERRLA, EOMI, Mucous Membr. moist/pink Cardiovascular: Regular Rate, Normal S1, Normal S2 Lungs: Clear to Auscultation, Normal Air Movement Abdomen: Normal Bowel Sounds, Soft, No Tenderness Extremities: No Edema, Normal Pulses Current Medications: Current Medications Sig/Donna Start time Last Medication Dose Route Stop Time Status Admin Acetaminophen 1,000 MG Q8P PRN 07/29 0100 AC N/A 1 UNIT IV Acetaminophen 650 MG Q6P PRN 07/28 2315 AC PO Aspirin 81 MG DAILY 07/28 2345 AC 07/29 PO 0027 Atorvastatin Calcium 80 MG 1700 07/29 1700 AC PO Clopidogrel Bisulfate 75 MG DAILY 07/28 2359 AC 07/29 PO 0027 Docusate Sodium 100 MG DAILY NEEDED 07/28 2315 AC PO Enoxaparin Sodium 40 MG DAILY 07/29 1000 AC SC Folic Acid 1 MG DAILY 07/29 1000 AC PO Ibuprofen 600 MG Q6P PRN 07/28 2315 CAN PO Lisinopril 20 MG DAILY 07/29 1000 AC PO Lorazepam 0 Q1P PRN 07/28 2330 AC 07/29 IV 0620 Melatonin 5 MG AT BEDTIME 07/28 2145 AC 07/28 PO 2150 Metoprolol Succinate 100 MG DAILY 07/29 1000 AC PO Multivitamins 1 TAB DAILY 07/29 1000 AC PO Omeprazole 40 MG DAILY AC 07/29 0700 AC PO Oxycodone/ 1 TAB Q6P PRN 07/28 2330 CAN Acetaminophen PO Sodium Chloride 1,000 ML Q13H 07/28 2330 AC 07/29 IV 0027 Tamsulosin HCl 0.4 MG DAILY 07/29 1000 AC PO Thiamine HCl 100 MG DAILY 07/29 1000 AC PO Last 24 Hrs of Lab/Carlos Results Last 24 Hrs of Labs/Mics: Laboratory Tests 07/29/16 0600: Sodium Cancelled, Potassium Cancelled, Chloride Cancelled, Carbon Dioxide Cancelled, Anion Gap Cancelled, BUN Cancelled, Creatinine Cancelled, BUN/ Creatinine Ratio Cancelled, Triglycerides Cancelled, Cholesterol Cancelled, LDL Cholesterol, Calc Cancelled, HDL Cholesterol Cancelled, Cholesterol/HDL Ratio Cancelled, Vitamin B12 Cancelled, 25-OH Vitamin D Total Cancelled, TSH Cancelled , CBC w Diff Cancelled, WBC Cancelled, RBC Cancelled, Hgb Cancelled, Hct Cancelled, MCV Cancelled, MCH Cancelled, RDW Cancelled, Plt Count Cancelled, MPV Cancelled, PUBS MCHC Cancelled 07/29/16 0445: Anion Gap 16, Estimated GFR > 60, BUN/Creatinine Ratio 21.4, Total Bilirubin 0.5 , Direct Bilirubin 0.3, AST 40, ALT 69, Alkaline Phosphatase 119, Troponin I < 0.01, Total Protein 7.2, Albumin 4.2, Triglycerides 86, Cholesterol 139, LDL Cholesterol, Calc 66, HDL Cholesterol 56, Cholesterol/HDL Ratio 2, Vitamin B12 503, 25-OH Vitamin D Total Pending, TSH 3.340, Prolactin 17.3, CBC w Diff NO MAN DIFF REQ, RBC 4.37 L, MCV 92.3, MCH 30.5, RDW 12.8, MPV 8.9, Gran % 73.8, Lymphocytes % 16.9 L, Monocytes % 8.5, Eosinophils % 0.5, Basophils % 0.3, Absolute Granulocytes 8.8 H, Absolute Lymphocytes 2.0, Absolute Monocytes 1.0 H, Absolute Eosinophils 0.1, Absolute Basophils 0, PUBS MCHC 33.0 07/29/16 0145: Anion Gap 14, Estimated GFR > 60, BUN/Creatinine Ratio 22.9, Phosphorus 3.7, Magnesium 1.8 07/28/16 1100: Anion Gap 11, Estimated GFR > 60, BUN/Creatinine Ratio 18.6, Glucose 97, Calcium 9.4, Total Bilirubin 0.4, AST 47, ALT 90 H, Alkaline Phosphatase 138 H, Troponin I < 0.01, Total Protein 7.4, Albumin 4.3, Globulin 3.1, Albumin/ Globulin Ratio 1.4, PT 11.5, INR 1.10 07/28/16 1005: CBC w Diff NO MAN DIFF REQ, RBC 4.39 L, MCV 92.5, MCH 30.8, RDW 12.6, MPV 9.3, Gran % 82.7 H, Lymphocytes % 9.7 L, Monocytes % 7.1, Eosinophils % 0.3, Basophils % 0.2, Absolute Granulocytes 10.1 H, Absolute Lymphocytes 1.2, Absolute Monocytes 0.9 H, Absolute Eosinophils 0, Absolute Basophils 0, PUBS MCHC 33.3 Microbiology 07/29 0514 URINE ROUT: Urine Culture - COLB Lines/Diet/Fluids Lines: peripheral lines Assessment/Plan Assessment: 61 yo M with pmh of mental retardation, functional at baseline, hypertension, hyperlipidemia, GERD, diverticulitis, BPH, Reid's esophagus, and sigmoid vesical fistula who presents today after being found on the floor in his apartment this morning. He does not recall the fall but endorses that he frequently feels lightheaded and dizzy in the morning. which he says feels like he is having anxiety attacks. He has laso had a couple of syncopal episodes this year already. He denies chest pain, blurred vision, palpitations, nausea, vomiting, abdominal pain, or weakness. According to the ER notes, when patient was brought to the hospital he had some right-sided weakness which seemed to have totally resolved while in the ED. He was previously admitted here at [place] in 2016 with episodes of dizziness and slurred speech and was treated for a TIA thought to be possibly a microinfarct as no positive lesion was evident on the MRI. He drinks 4 beers every night to help him sleep. Problem List 1. Possible TIA vs Seizures 2. Multiple unwitnessed syncopal episodes r/o Paroxysmal afib 3. HTN 4. HLD 5. Chronic Etoh Use Plan Consider changing patient to admit status to work-up possible seizures Give IV ativan if seizure recurs Continue lisionopril Continue aspirin and plavix Neuro consult-to r/o seizure vs TIA and possibly start anti seizure meds if neccessary Cardio consult-to determine how long xarelto can be hled of or other alternatives that may not cause excessive bleeding Obtain an EEG Continue statin dose at 80mg daily Continue IV hydration CIWA protocol ativan in case of withdrawal PT consult Check orthostats Continue MVI/thiamine/Folate Obtain a detailed PMH and current medical history from sister who is his POA in AM Melatonin for sleep Pain pathway Heart healthy diet SC lovenox for DVT ppx FC Problem List: 1. Syncope 2. TIA (transient ischemic attack) 3. Seizure 4. Hyponatremia Pain Ratin Pain Location: n/a Pain Goal: Remain pain free Pain Plan: n/a Tomorrow's Labs & Rationales: BEP
--- NOTE | 2016-07-29 07:42 | RADIOLOGY REPORT ---
EXAMINATION: XR PORTABLE CHEST CLINICAL INFORMATION: Seizure; clinical question of aspiration. COMPARISON: Prior chest radiographs, most recently 01/18/2016; CT thorax dated 12/18/2015. TECHNIQUE: Portable frontal view of the chest was obtained. The patient is somewhat rotated. FINDINGS: The heart, great vessels, pulmonary vasculature and mediastinum are stable. There is a small lateral left base patchy infiltrate. The right lung field appears clear. There is no pleural effusion or pneumothorax. No acute osseous abnormality is seen. IMPRESSION: A small lateral left base patchy infiltrate is seen, with appearance suspicious for acute pneumonia. Recommend radiographic follow-up to clearance.
--- NOTE | 2016-07-29 08:04 | NUR ---
NURSING NOTE, LATE ENTRY: 419 PT FOUND ATTEMPTING TO WANDER IN HALLWAY, CONFUSED. PT REDIRECTED BACK TO BED, WHERE PT WAS FOUND TO NOT BE ABLE TO FOLLOW COMMANDS OR ANSWER QUESTIONS VERBALY. RAPID RESPONSE CALLED AT 0426. VS: BP 140/[address], [address], 93% RA/ 96% 2LNC, RR24, TEMP 97.8 AXILLARY, FINGER STICK 106. EPISODED LASTED AROUND 10MIN. STAT LABS ORDERED, DRAWN AND SENT. PT SLOWLY BECAME MORE AWAKE AND ALERT. EEG, NEURO CONSULT PLACED FOR THIS MORNING. AT 0615, PT HAD SIMILAR EPISODE, 1MG IV ATIVAN GIVEN AT THIS TIME. DR. NEVAREZ NOTIFIED, AT BEDSIDE TO EVALUATE PT. PT NOW SLEEPING AT THIS TIME, REPORT GIVEN TO ONCOMING NURSE.
[2016-07-29 09:05] VITALS: BP 94/64
--- NOTE | 2016-07-29 10:15 | NUR ---
PHYSICAL THERAPY- CONSULT RECEIVED S/P ?TIA, SYMPTOMS HAVE RESOLVED SINCE ADMISSION. PT W/ EVENT OVERNIGHT AMBULATING IN HALLWAY, NONVERBAL, ?SEIZURELIKE ACTIVITY. AWAITING NEURO CONSULT. PT ABLE TO AMBULATE, AND TIA SX HAVE RESOLVED, WILL NOT FOLLOW PT AT THIS TIME. ONCE CLEARED BY NEURO, RECOMMEND CONT AMB W/ NSG STAFF. IF FUNCTIONAL DEFICITS REMAIN, PLEASE RECONSULT.
--- NOTE | 2016-07-29 12:55 | PN- Att Addend ---
Attending Addendum Attending Brief Note Patient seen and examined. Admitted from home after an episode of syncope. He reports having a couple of syncope episodes this year. Overnight the rapid response was called and patient was noted not to be ashen questions while being examined. He had no abnormal muscle movements. He was noted to be incontinent of urine. Episode lasted about 10 minutes after with patient seemed confused. This morning she is a lot and oriented 3. Conversing appropriately. Does not recall overnight events. Chest or shortness of breath. Denies palpitations. On telemetry overnight she remained in normal sinus rhythm. He was tachycardic up to 150s around the time of his rapid response. Vital Signs Date Time Temp Pulse Resp B/P B/P Pulse O2 O2 Flow FiO2 Mean Ox Delivery Rate 07/29 1127 95 118/80 07/29 1127 95 118/80 07/29 1127 95 118/80 07/29 1000 Nasal 2.0L Cannula 07/29 0905 98.2 89 18 94/64 98 Nasal 2.0L Cannula 07/29 0854 Nasal 2.0L Cannula 07/29 0434 96 Nasal 2.0L Cannula 07/29 0259 132/82 07/29 2015 98.5 98 18 138/100 97 Room Air 07/28 1855 97.3 92 18 154/86 96 Room Air 07/28 1613 98.9 108 18 141/80 95 Room Air 07/28 1331 97.2 99 18 119/76 95 Room Air Gen. appearance: Not in acute distress Heart: S1-S2 regular Lungs: Good entry bilaterally, clear to auscultation Abdomen: Soft, nontender with normal bowel sounds. Extremities: No pedal edema. Laboratory Tests 07/29/16 0600: Sodium Cancelled, Potassium Cancelled, Chloride Cancelled, Carbon Dioxide Cancelled, Anion Gap Cancelled, BUN Cancelled, Creatinine Cancelled, BUN/ Creatinine Ratio Cancelled, Triglycerides Cancelled, Cholesterol Cancelled, LDL Cholesterol, Calc Cancelled, HDL Cholesterol Cancelled, Cholesterol/HDL Ratio Cancelled, Vitamin B12 Cancelled, 25-OH Vitamin D Total Cancelled, TSH Cancelled , CBC w Diff Cancelled, WBC Cancelled, RBC Cancelled, Hgb Cancelled, Hct Cancelled, MCV Cancelled, MCH Cancelled, RDW Cancelled, Plt Count Cancelled, MPV Cancelled, PUBS MCHC Cancelled 07/29/16 0445: Anion Gap 16, Estimated GFR > 60, BUN/Creatinine Ratio 21.4, Total Bilirubin 0.5 , Direct Bilirubin 0.3, AST 40, ALT 69, Alkaline Phosphatase 119, Troponin I < 0.01, Total Protein 7.2, Albumin 4.2, Triglycerides 86, Cholesterol 139, LDL Cholesterol, Calc 66, HDL Cholesterol 56, Cholesterol/HDL Ratio 2, Vitamin B12 503, 25-OH Vitamin D Total 31.8, TSH 3.340, Prolactin 17.3, CBC w Diff NO MAN DIFF REQ, RBC 4.37 L, MCV 92.3, MCH 30.5, RDW 12.8, MPV 8.9, Gran % 73.8, Lymphocytes % 16.9 L, Monocytes % 8.5, Eosinophils % 0.5, Basophils % 0.3, Absolute Granulocytes 8.8 H, Absolute Lymphocytes 2.0, Absolute Monocytes 1.0 H, Absolute Eosinophils 0.1, Absolute Basophils 0, PUBS MCHC 33.0 07/29/16 0145: Anion Gap 14, Estimated GFR > 60, BUN/Creatinine Ratio 22.9, Phosphorus 3.7, Magnesium 1.8 Microbiology 07/29 05 URINE ROUT: Urine Culture - COLB Problems: 1. Unresponsive episode; history appears consistent with seizure episode. 2. History of TIA 3. Hypertension 4. Leukocytosis; likely reactive Plan: -Seizure precautions, fall precautions. Neuro watch every 4 hours. -The EEG. Neurology consultation. -Obtain echocardiogram and carotid Dopplers. -If his symptoms are secondary to seizures there is no role in switching his antiplatelet therapy. Please follow-up with the neurology service as he was switched from Aggrenox to aspirin/Plavix upon discharge
--- NOTE | 2016-07-29 14:13 | Cons- Neurology ---
General Information and HPI Consulting Request Date of Consult: 07/29/16 Requested By: LILY ALVARENGA MD History of Present Illness: 61-year-old male, poor historian, admitted after he was found on the ground and his home. He has no rectal recollection of the event. He did not recall feeling dizzy or ill prior to the fall to the ground. He recalls awakening in the ED but has no recall of the arrival of the EMS. There was no witness to the event since he lives alone. In his senior complex someone comes around in the morning to knock on the door and according to his sister's they heard a thought and then opened the door to find him on the ground. There was no report of convulsive activity. Per his 3 sisters he apparently has had a number of similar episodes over the past few months. Workup for those evaluations is not known. At present they believe that he is back to his previous status The cyst is also believed that he was incontinent at the scene. He has been living at the [facility] approximately 5 years; his sisters help with cleaning, and shopping. Per the ED when he was evaluated he appeared confused and had right-sided weakness which was quite transient This morning he was found wandering in the hallway, nonverbal, seemed confused for about 3-5 minutes Allergies/Medications Allergies: Coded Allergies: egg (DIRRHEA 06/12/16) Home Med List: Dexlansoprazole (Dexilant) 60 MG VEL.DRJuan JBP 1 CAP PO DAILY GI (Reported) Dipyridamole W/ Aspirin (Aggrenox 25 MG-200 MG Capsule) 25 MG-200 MG CPMP.12HR 1 CAP PO BID BLOOD THINNER Lisinopril 20 MG TABLET 1 TAB PO DAILY BP (Reported) Metoprolol Succ XL (Toprol XL) 100 MG TAB.ER.24H 1 TAB PO DAILY blood pressure Simvastatin (Simvastatin*) 40 MG TABLET 1 TAB PO QPM CHOLESTEROL (Reported) Tamsulosin HCl (Flomax) 0.4 MG CAP.ER.24H 1 CAP PO DAILY PROSTATE (Reported) Current Medications: Current Medications Sig/Donna Start time Last Medication Dose Route Stop Time Status Admin Acetaminophen 1,000 MG Q8P PRN 07/29 0100 AC N/A 1 UNIT IV Acetaminophen 650 MG Q6P PRN 07/28 2315 AC PO Aspirin 81 MG DAILY 07/28 2345 AC 07/29 PO 0027 Atorvastatin Calcium 80 MG 1700 07/29 1700 AC PO Clopidogrel Bisulfate 75 MG DAILY 07/28 2359 AC 07/29 PO 1127 Docusate Sodium 100 MG DAILY NEEDED 07/28 2315 AC PO Enoxaparin Sodium 40 MG DAILY 07/29 1000 AC 07/29 SC 1128 Folic Acid 1 MG DAILY 07/29 1000 AC 07/29 PO 1127 Ibuprofen 600 MG Q6P PRN 07/28 2315 CAN PO Lisinopril 20 MG DAILY 07/29 1000 AC 07/29 PO 1127 Lorazepam 0 Q1P PRN 07/28 2330 AC 07/29 IV 0620 Melatonin 5 MG AT BEDTIME 07/28 2145 AC 07/28 PO 2150 Metoprolol Succinate 100 MG DAILY 07/29 1000 AC 07/29 PO 1127 Multivitamins 1 TAB DAILY 07/29 1000 AC 07/29 PO 1127 Omeprazole 40 MG DAILY AC 07/29 0700 AC PO Oxycodone/ 1 TAB Q6P PRN 07/28 2330 CAN Acetaminophen PO Sodium Chloride 1,000 ML Q13H 07/28 2330 AC 07/29 IV 0027 Tamsulosin HCl 0.4 MG DAILY 07/29 1000 AC 07/29 PO 1127 Thiamine HCl 100 MG DAILY 07/29 1000 AC 07/29 PO 1127 Review of Systems Review of Systems: Denies headache, diplopia, vomiting, chest pain, breathing troubles, vomiting, fever, swelling, vertigo, weight change, difficulty swallowing Other systems reviewed are negative Past History Travel History Traveled to [place] past 21 day No Medical History Blood Transfusion Hx: No Neurological: TIA, MENTALLY CHALLENGED EENT: cataracts, glaucoma Cardiovascular: HTN, HIGH CHOLESTEROL Respiratory: asthma Gastrointestinal: diverticulitis, GERD, Reid's esophagus Hepatic: NONE Renal: benign prost hyperplasia Musculoskeletal: NONE Psychiatric: mentally challenged. 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 sister Services at Home: Nursing Primary Language: [place] Smoking Status: Never Smoked Functional Ability ADLs Needs Assist: dressing, eating, toileting, bathing. Ambulation: independent IADLs Needs Assist: shopping, housework, finances, food prep, telephone, transportation, medication admin. Exam & Diagnostic Data Vital Signs and I&O FH: fatherCOPD Mother: cancer Vital Signs Date Time Temp Pulse Resp B/P B/P Pulse O2 O2 Flow FiO2 Mean Ox Delivery Rate 07/29 1127 95 118/80 07/29 1127 95 118/80 07/29 1127 95 118/80 07/29 1000 Nasal 2.0L Cannula 07/29 0905 98.2 89 18 94/64 98 Nasal 2.0L Cannula 07/29 0854 Nasal 2.0L Cannula 07/29 0434 96 Nasal 2.0L Cannula 07/29 0259 132/82 07/29 2015 98.5 98 18 138/100 97 Room Air 07/28 1855 97.3 92 18 154/86 96 Room Air 07/28 1613 98.9 108 18 141/80 95 Room Air Intake & Output 07/29 1600 07/29 0800 07/29 0000 Intake Total 300 250 Output Total Balance 300 250 Intake, IV 150 0 Intake, Oral 150 250 Number 0 0 Bowel Movements Patient 120 lb Weight Physical Exam: Poor historian Comfortable Oriented to time and place Fund of knowledge is impaired Heart sounds normal No carotid bruits Distal pulses intact Extraocular movements full, pupils equal and reactive, fundi benign, visual luke intact, no facial weakness, no facial sensory loss, palate tongue and shoulders intact, hearing grossly intact Normal tone and strength all 4 extremities Sensation intact to light touch Deep tendon reflexes hypoactive throughout Coordinative functions and gait intact Last 48 Hours of Lab Results: Laboratory Tests 07/29 07/29 07/29 0600 0445 0145 Chemistry Sodium (137 - 145 mmol/L) Cancelled 135 L 135 L Potassium (3.5 - 5.1 mmol/L) Cancelled 3.9 4.2 Chloride (98 - 107 mmol/L) Cancelled 98 97 L Carbon Dioxide (22 - 30 mmol/L) Cancelled 21 L 24 Anion Gap (5 - 16) Cancelled 16 14 BUN (9 - 20 mg/dL) Cancelled 15 16 Creatinine (0.7 - 1.2 mg/dL) Cancelled 0.7 0.7 Estimated GFR (>60 ml/min) > 60 > 60 BUN/Creatinine Ratio (7 - 25 %) Cancelled 21.4 22.9 Phosphorus (2.5 - 4.5 mg/dL) 3.7 Magnesium (1.6 - 2.3 mg/dL) 1.8 Total Bilirubin (0.2 - 1.3 mg/dL) 0.5 Direct Bilirubin (< 0.4 mg/dL) 0.3 AST (17 - 59 U/L) 40 ALT (21 - 72 U/L) 69 Alkaline Phosphatase (< 127 U/L) 119 Troponin I (<0.11 ng/ml) < 0.01 Total Protein (6.3 - 8.2 g/dL) 7.2 Albumin (3.5 - 5.0 g/dL) 4.2 Triglycerides (<150 mg/dL) Cancelled 86 Cholesterol (< 200 MG/DL) Cancelled 139 LDL Cholesterol, Calc (65 - 129 mg/dL) Cancelled 66 HDL Cholesterol (40 - 60 mg/dL) Cancelled 56 Cholesterol/HDL Ratio (0.00 - 4.88 %) Cancelled 2 Vitamin B12 (239 - 931 pg/mL) Cancelled 503 25-OH Vitamin D Total (30 - 100 ng/ml) Cancelled 31.8 TSH (0.270 - 4.200 uIU/mL) Cancelled 3.340 Prolactin (3.7 - 17.9 ng/mL) 17.3 Hematology CBC w Diff Cancelled NO MAN DIFF REQ WBC (4.8 - 10.8 /CUMM) Cancelled 11.9 H RBC (4.70 - 6.10 /CUMM) Cancelled 4.37 L Hgb (14.0 - 18.0 G/DL) Cancelled 13.3 L Hct (42 - 52 %) Cancelled 40.3 L MCV (80.0 - 94.0 FL) Cancelled 92.3 MCH (27.0 - 31.0 PG) Cancelled 30.5 RDW (11.5 - 14.5 %) Cancelled 12.8 Plt Count (130 - 400 /CUMM) Cancelled 224 MPV (7.4 - 10.4 FL) Cancelled 8.9 Gran % (42.2 - 75.2 %) 73.8 Lymphocytes % (20.5 - 51.1 %) 16.9 L Monocytes % (1.7 - 9.3 %) 8.5 Eosinophils % (0 - 5 %) 0.5 Basophils % (0.0 - 2.0 %) 0.3 Absolute Granulocytes (1.4 - 6.5 /CUMM) 8.8 H Absolute Lymphocytes (1.2 - 3.4 /CUMM) 2.0 Absolute Monocytes (0.10 - 0.60 /CUMM) 1.0 H Absolute Eosinophils (0.0 - 0.7 /CUMM) 0.1 Absolute Basophils (0.0 - 0.2 /CUMM) 0 PUBS MCHC (33.0 - 37.0 G/DL) Cancelled 33.0 06/16 06/16 1100 1005 Chemistry Sodium (137 - 145 mmol/L) 134 L Potassium (3.5 - 5.1 mmol/L) 4.4 Chloride (98 - 107 mmol/L) 97 L Carbon Dioxide (22 - 30 mmol/L) 26 Anion Gap (5 - 16) 11 BUN (9 - 20 mg/dL) 13 Creatinine (0.7 - 1.2 mg/dL) 0.7 Estimated GFR (>60 ml/min) > 60 BUN/Creatinine Ratio (7 - 25 %) 18.6 Glucose (65 - 99 mg/dL) 97 Calcium (8.4 - 10.2 mg/dL) 9.4 Total Bilirubin (0.2 - 1.3 mg/dL) 0.4 AST (17 - 59 U/L) 47 ALT (21 - 72 U/L) 90 H Alkaline Phosphatase (< 127 U/L) 138 H Troponin I (<0.11 ng/ml) < 0.01 Total Protein (6.3 - 8.2 g/dL) 7.4 Albumin (3.5 - 5.0 g/dL) 4.3 Globulin (1.9 - 4.2 gm/dL) 3.1 Albumin/Globulin Ratio (1.1 - 2.2 %) 1.4 Coagulation PT (9.4 - 12.5 SEC) 11.5 INR (0.90 - 1.17) 1.10 Hematology CBC w Diff NO MAN DIFF REQ WBC (4.8 - 10.8 /CUMM) 12.2 H RBC (4.70 - 6.10 /CUMM) 4.39 L Hgb (14.0 - 18.0 G/DL) 13.5 L Hct (42 - 52 %) 40.7 L MCV (80.0 - 94.0 FL) 92.5 MCH (27.0 - 31.0 PG) 30.8 RDW (11.5 - 14.5 %) 12.6 Plt Count (130 - 400 /CUMM) 246 MPV (7.4 - 10.4 FL) 9.3 Gran % (42.2 - 75.2 %) 82.7 H Lymphocytes % (20.5 - 51.1 %) 9.7 L Monocytes % (1.7 - 9.3 %) 7.1 Eosinophils % (0 - 5 %) 0.3 Basophils % (0.0 - 2.0 %) 0.2 Absolute Granulocytes (1.4 - 6.5 /CUMM) 10.1 H Absolute Lymphocytes (1.2 - 3.4 /CUMM) 1.2 Absolute Monocytes (0.10 - 0.60 /CUMM) 0.9 H Absolute Eosinophils (0.0 - 0.7 /CUMM) 0 Absolute Basophils (0.0 - 0.2 /CUMM) 0 PUBS MCHC (33.0 - 37.0 G/DL) 33.3 Imaging/Other Studies: MRI IMPRESSION: Motion degraded study. No acute brain ischemia is visualized. 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 Stable chronic lacune within the left frontal periventricular white matter. CT IMPRESSION: No acute intracranial pathology. Mild volume loss with moderate small vessel ischemic changes. Assessment/Plan Assessment: Recurrent episodes of alteration of consciousness Possible seizure disorder Recommendations: Electroencephalogram as soon as available Cardiac evaluation Monitor for orthostasis Patient will probably need increased level of support at home Consider trial of levetiracetam 500 mg twice a day if no other etiology found Consult Acknowledgment - Thank you for your consult request.
[2016-07-29 16:11] VITALS: BP 108/80
--- NOTE | 2016-07-29 20:26 | Cons- Cardiology ---
General Information and HPI Consulting Request Date of Consult: 07/29/16 Requested By: LILY ALVARENGA MD Reason for Consult: Syncope History of Present Illness: The patient is a 61-year-old male with history of hypertension, hyperlipidemia, TIA, and prior syncope. He was brought to the hospital after being found on the floor in his senior housing complex. He is unsure how he came to be on the floor. He was admitted to the hospital. While in the hospital, he was observed to be unresponsive for approximately 10 minutes. This was felt to be possibly a seizure. He is a poor historian. He reports that he is currently feeling well. No chest pain. No palpitations. No lightheadedness or dizziness. No nausea or vomiting. Allergies/Medications Allergies: Coded Allergies: egg (DIRRHEA 06/12/16) Home Med List: Dexlansoprazole (Dexilant) 60 MG VEL.BP 1 CAP PO DAILY GI (Reported) Dipyridamole W/ Aspirin (Aggrenox 25 MG-200 MG Capsule) 25 MG-200 MG CPMP.12HR 1 CAP PO BID BLOOD THINNER Lisinopril 20 MG TABLET 1 TAB PO DAILY BP (Reported) Metoprolol Succ XL (Toprol XL) 100 MG TAB.ER.24H 1 TAB PO DAILY blood pressure Simvastatin (Simvastatin*) 40 MG TABLET 1 TAB PO QPM CHOLESTEROL (Reported) Tamsulosin HCl (Flomax) 0.4 MG CAP.ER.24H 1 CAP PO DAILY PROSTATE (Reported) Current Medications: Current Medications Sig/Donna Start time Last Medication Dose Route Stop Time Status Admin Acetaminophen 1,000 MG Q8P PRN 07/29 0100 AC N/A 1 UNIT IV Acetaminophen 650 MG Q6P PRN 07/28 2315 AC PO Aspirin 81 MG DAILY 07/28 2345 AC 07/29 PO 0027 Atorvastatin Calcium 80 MG 1700 07/29 1700 AC 07/29 PO 1705 Clopidogrel Bisulfate 75 MG DAILY 07/28 2359 AC 07/29 PO 1127 Docusate Sodium 100 MG DAILY NEEDED 07/28 2315 AC PO Enoxaparin Sodium 40 MG DAILY 07/29 1000 AC 07/29 SC 1128 Folic Acid 1 MG DAILY 07/29 1000 AC 07/29 PO 1127 Ibuprofen 600 MG Q6P PRN 07/28 2315 CAN PO Lisinopril 20 MG DAILY 07/29 1000 AC 07/29 PO 1127 Lorazepam 0 Q1P PRN 07/28 2330 AC 07/29 IV 0620 Melatonin 5 MG AT BEDTIME 07/28 2145 AC 07/28 PO 2150 Metoprolol Succinate 100 MG DAILY 07/29 1000 AC 07/29 PO 1127 Multivitamins 1 TAB DAILY 07/29 1000 AC 07/29 PO 1127 Omeprazole 40 MG DAILY AC 07/29 0700 AC PO Oxycodone/ 1 TAB Q6P PRN 07/28 2330 CAN Acetaminophen PO Sodium Chloride 1,000 ML Q13H 07/28 2330 AC 07/29 IV 1437 Tamsulosin HCl 0.4 MG DAILY 07/29 1000 AC 07/29 PO 1127 Thiamine HCl 100 MG DAILY 07/29 1000 AC 07/29 PO 1127 Review of Systems Review of Systems: No rash. No tremor. No melena. All other systems were reviewed, and were noted to be negative. Past History Travel History Traveled to [place] past 21 day No Medical History Blood Transfusion Hx: No Neurological: TIA, MENTALLY CHALLENGED EENT: cataracts, glaucoma Cardiovascular: HTN, HIGH CHOLESTEROL Respiratory: asthma Gastrointestinal: diverticulitis, GERD, Reid's esophagus Hepatic: NONE Renal: benign prost hyperplasia Musculoskeletal: NONE Psychiatric: mentally challenged. 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 Family history was reviewed with the patient, and there are no factors relevant to the present admission. Psychosocial History Who Do You Live With? sister Services at Home: Nursing Primary Language: Kyrgyz Smoking Status: Never Smoked Functional Ability ADLs Needs Assist: dressing, eating, toileting, bathing. Ambulation: independent IADLs Needs Assist: shopping, housework, finances, food prep, telephone, transportation, medication admin. Exam & Diagnostic Data Vital Signs and I&O Vital Signs Date Time Temp Pulse Resp B/P B/P Pulse O2 O2 Flow FiO2 Mean Ox Delivery Rate 07/29 1611 98.4 87 16 108/80 98 Nasal 2.0L Cannula 07/29 112 95 118/80 07/29 1127 95 118/80 07/29 1127 95 118/80 07/29 1000 Nasal 2.0L Cannula 07/29 0905 98.2 89 18 94/64 98 Nasal 2.0L Cannula 07/29 0854 Nasal 2.0L Cannula 07/29 0434 96 Nasal 2.0L Cannula 07/29 0259 132/82 Intake & Output 07/29 1600 07/29 0800 07/29 0000 07/28 1600 07/28 0800 07/28 0000 Intake Total 1200 300 250 Output Total 300 Balance 900 300 250 Intake, IV 600 150 0 Intake, Oral 600 150 250 Number 0 0 Bowel Movements Output, Urine 300 Patient 120 lb Weight Physical Exam: Gen: The patient is in no acute distress HEENT: Normal nose, ears, and oropharynx. Pupils equal bilaterally. Conjunctiva normal. Neck: Supple with no JVD, no masses, and no thyromegaly Lungs: Clear to auscultation with normal respiratory effort Heart: RRR, S1, S2, no murmurs. No peripheral edema, 2+ pulses in the lower extremities bilaterally Abdomen: Soft, nontender, no masses. No hepatomegaly. No splenomegaly Extremities: No clubbing or cyanosis. Normal muscle strength in the upper and lower extremities Skin: Normal skin turgor with no skin ulcers or lesions noted. Neuro: Cranial nerves intact. Sensation intact Psych: Alert and oriented 3 with appropriate affect Labs/Carlos Results: Laboratory Tests 07/29 07/29 1630 0600 Chemistry Sodium Cancelled Potassium Cancelled Chloride Cancelled Carbon Dioxide Cancelled Anion Gap Cancelled BUN Cancelled Creatinine Cancelled BUN/Creatinine Ratio Cancelled Triglycerides Cancelled Cholesterol Cancelled LDL Cholesterol, Calc Cancelled HDL Cholesterol Cancelled Cholesterol/HDL Ratio Cancelled Vitamin B12 Cancelled 25-OH Vitamin D Total Cancelled TSH Cancelled Hematology CBC w Diff Cancelled WBC Cancelled RBC Cancelled Hgb Cancelled Hct Cancelled MCV Cancelled MCH Cancelled RDW Cancelled Plt Count Cancelled MPV Cancelled PUBS MCHC Cancelled Urines Urine Color (YEL,AMB,STR) YEL Urine Clarity (CLEAR) CLEAR Urine pH (5.0 - 8.0) 6.0 Ur Specific [place] (1.001 - 1.035) 1.020 Urine Protein (NEG,<30 MG/DL) NEG Urine Ketones (NEG) TRACE H Urine Nitrite (NEG) NEG Urine Bilirubin (NEG) NEG Urine Urobilinogen (0.1 - 1.0 EU/dl) 0.2 Ur Leukocyte Esterase (NEG) NEG Ur Microscopic EXAM NOT REQUIRED Urine Hemoglobin (NEG) NEG Urine Glucose (N MG/DL) NEG 07/29 07/29 07/28 1763 0143 1100 Chemistry Sodium (137 - 145 mmol/L) 135 L 135 L 134 L Potassium (3.5 - 5.1 mmol/L) 3.9 4.2 4.4 Chloride (98 - 107 mmol/L) 98 97 L 97 L Carbon Dioxide (22 - 30 mmol/L) 21 L 24 26 Anion Gap (5 - 16) 16 14 11 BUN (9 - 20 mg/dL) 15 16 13 Creatinine (0.7 - 1.2 mg/dL) 0.7 0.7 0.7 Estimated GFR (>60 ml/min) > 60 > 60 > 60 BUN/Creatinine Ratio (7 - 25 %) 21.4 22.9 18.6 Glucose (65 - 99 mg/dL) 97 Calcium (8.4 - 10.2 mg/dL) 9.4 Phosphorus (2.5 - 4.5 mg/dL) 3.7 Magnesium (1.6 - 2.3 mg/dL) 1.8 Total Bilirubin (0.2 - 1.3 mg/dL) 0.5 0.4 Direct Bilirubin (< 0.4 mg/dL) 0.3 AST (17 - 59 U/L) 40 47 ALT (21 - 72 U/L) 69 90 H Alkaline Phosphatase (< 127 U/L) 119 138 H Troponin I (<0.11 ng/ml) < 0.01 < 0.01 Total Protein (6.3 - 8.2 g/dL) 7.2 7.4 Albumin (3.5 - 5.0 g/dL) 4.2 4.3 Globulin (1.9 - 4.2 gm/dL) 3.1 Albumin/Globulin Ratio (1.1 - 2.2 %) 1.4 Triglycerides (<150 mg/dL) 86 Cholesterol (< 200 MG/DL) 139 LDL Cholesterol, Calc (65 - 129 mg/dL) 66 HDL Cholesterol (40 - 60 mg/dL) 56 Cholesterol/HDL Ratio (0.00 - 4.88 %) 2 Vitamin B12 (239 - 931 pg/mL) 503 25-OH Vitamin D Total (30 - 100 ng/ml) 31.8 TSH (0.270 - 4.200 uIU/mL) 3.340 Prolactin (3.7 - 17.9 ng/mL) 17.3 Coagulation PT (9.4 - 12.5 SEC) 11.5 INR (0.90 - 1.17) 1.10 Hematology CBC w Diff NO MAN DIFF REQ WBC (4.8 - 10.8 /CUMM) 11.9 H RBC (4.70 - 6.10 /CUMM) 4.37 L Hgb (14.0 - 18.0 G/DL) 13.3 L Hct (42 - 52 %) 40.3 L MCV (80.0 - 94.0 FL) 92.3 MCH (27.0 - 31.0 PG) 30.5 RDW (11.5 - 14.5 %) 12.8 Plt Count (130 - 400 /CUMM) 224 MPV (7.4 - 10.4 FL) 8.9 Gran % (42.2 - 75.2 %) 73.8 Lymphocytes % (20.5 - 51.1 %) 16.9 L Monocytes % (1.7 - 9.3 %) 8.5 Eosinophils % (0 - 5 %) 0.5 Basophils % (0.0 - 2.0 %) 0.3 Absolute Granulocytes (1.4 - 6.5 /CUMM) 8.8 H Absolute Lymphocytes (1.2 - 3.4 /CUMM) 2.0 Absolute Monocytes (0.10 - 0.60 /CUMM) 1.0 H Absolute Eosinophils (0.0 - 0.7 /CUMM) 0.1 Absolute Basophils (0.0 - 0.2 /CUMM) 0 PUBS MCHC (33.0 - 37.0 G/DL) 33.0 /16 1005 Hematology CBC w Diff NO MAN DIFF REQ WBC (4.8 - 10.8 /CUMM) 12.2 H RBC (4.70 - 6.10 /CUMM) 4.39 L Hgb (14.0 - 18.0 G/DL) 13.5 L Hct (42 - 52 %) 40.7 L MCV (80.0 - 94.0 FL) 92.5 MCH (27.0 - 31.0 PG) 30.8 RDW (11.5 - 14.5 %) 12.6 Plt Count (130 - 400 /CUMM) 246 MPV (7.4 - 10.4 FL) 9.3 Gran % (42.2 - 75.2 %) 82.7 H Lymphocytes % (20.5 - 51.1 %) 9.7 L Monocytes % (1.7 - 9.3 %) 7.1 Eosinophils % (0 - 5 %) 0.3 Basophils % (0.0 - 2.0 %) 0.2 Absolute Granulocytes (1.4 - 6.5 /CUMM) 10.1 H Absolute Lymphocytes (1.2 - 3.4 /CUMM) 1.2 Absolute Monocytes (0.10 - 0.60 /CUMM) 0.9 H Absolute Eosinophils (0.0 - 0.7 /CUMM) 0 Absolute Basophils (0.0 - 0.2 /CUMM) 0 PUBS MCHC (33.0 - 37.0 G/DL) 33.3 Diagnostic Data EKG Results EKG tracing is independently reviewed, and reveals sinus tachycardia at 115 CXR Results A small lateral left base patchy infiltrate is seen, with appearance suspicious for acute pneumonia. Recommend radiographic follow-up to clearance. Other Results MRI head: Motion degraded study. No acute brain ischemia is visualized. 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 Stable chronic lacune within the left frontal periventricular white matter. Assessment/Plan Assessment/Plan Assessment: 1. Hypertension 2. History of TIA 3. Syncope, uncertain etiology. Differential diagnosis includes seizure versus vasovagal episode versus cardiogenic syncope Plan: * Monitor on telemetry * Check orthostatics * Echocardiogram * Continue cardiac medications Consult Acknowledgment - Thank you for your consult request.
[2016-07-29 23:57] VITALS: BP 106/74
[2016-07-30 08:00] VITALS: BP 122/80
[2016-07-30 08:06] VITALS: BP 122/80
--- NOTE | 2016-07-30 09:28 | ULTRASOUND REPORT ---
EXAMINATION: DUPLEX BILATERAL CAROTID ULTRASOUND CLINICAL INFORMATION: CVA; history of hypertension. COMPARISON: Carotid duplex dated 01/19/2016. TECHNIQUE: Real-time ultrasound and Doppler techniques (integrating B-mode 2D vascular images, Doppler spectral analysis and color flow Doppler imaging) were utilized to interrogate the extracranial carotid and vertebral arteries bilaterally. FINDINGS: Right side: 1. There is no significant plaque in the ECA/ICA region. 2. The common carotid artery velocity is 84 cm/s. 3. The proximal internal carotid artery velocities are 77 cm/s systolic and 23 cm/s diastolic. 4. The external carotid artery velocity is 101 cm/s. Left side: 1. There is no significant plaque in the ECA/ICA region. 2. The common carotid artery velocity is 96 cm/s. 3. The proximal internal carotid artery velocities are 58 cm/s systolic and 18 cm/s diastolic. 4. The external carotid artery velocity is 98 cm/s. ADDITIONAL FINDINGS: 1. The vertebral arteries show antegrade flow. 2. The brachial artery pressures are symmetric. IMPRESSION: 1. RIGHT: No significant stenosis of the proximal right internal carotid artery corresponding to a 0-49% stenosis by velocity criteria. 2. LEFT: No significant stenosis of the proximal left internal carotid artery corresponding to a 0-49% stenosis by velocity criteria. 3. Antegrade flow is seen via the bilateral vertebral arteries.
--- NOTE | 2016-07-30 12:28 | PN- Att Addend ---
Attending Addendum Attending Brief Note Patient seen and examined. Resting comfortably and not in any acute distress. No events overnight. He remains alert and oriented 3. Conversing appropriately and ambulating freely around the unit. Denies chest or shortness of breath. Denies palpitations. Vital Signs Date Time Temp Pulse Resp B/P B/P Pulse O2 O2 Flow FiO2 Mean Ox Delivery Rate 07/30 1010 82 122/80 07/30 1010 82 122/80 07/30 1009 84 122/80 06 1000 82 07/30 0841 97 Room Air 07/30 0806 97.6 78 18 122/80 98 Nasal Cannula 07/30 0800 97.6 78 18 122/80 07/30 0800 97 Room Air 07/30 0000 Nasal 2.0L Cannula 07/29 2357 98.1 93 12 106/74 96 Nasal 2.0L Cannula 07/29 1611 98.4 87 16 108/80 98 Nasal 2.0L Cannula 07/29 1600 95 Nasal 2.0L Cannula Gen. appearance: Not in any distress. Heart: S1-S2 regular Lungs: Clear bilaterally Abdomen: Soft, nontender with normal bowel sounds Extremities: No pedal edema Skin: Intact with no rashes Neurologic: Alert and right 3 with no gross focal deficit. Problems: 1. Unresponsive episode; history appears consistent with seizure episode. 2. History of TIA 3. Hypertension 4. Leukocytosis; likely reactive Plan: -Follow-up echocardiogram. -Obtain EEG once available. -Repeat CBC in the morning. -Patient will remain on observation status with close monitoring of his mental status for any repeat seizure episodes. Follow-up results of echocardiogram and EEG. -Check orthostatic vitals.
--- NOTE | 2016-07-30 12:36 | PN- Housestaff ---
Subjective Follow-up For: Syncope under evaluation Complaints: no complaints Tele-Events Since Last Visit: No any overnight events Subjective: Patient is seen and examined at the bedside. He does not have any active complaints. Review of Systems Constitutional: Denies: no symptoms. Objective Last 24 Hrs of Vital Signs/I&O Vital Signs Date Time Temp Pulse Resp B/P B/P Pulse O2 O2 Flow FiO2 Mean Ox Delivery Rate 07/30 1800 77 07/30 1600 72 07/30 1551 97.8 76 18 118/78 97 Room Air 07/30 1400 76 07/30 1200 90 18 1010 82 122/80 18 1010 82 122/80 07/30 1009 84 122/80 07/30 1000 82 07/30 0841 97 Room Air 07/30 0806 97.6 78 18 122/80 98 Nasal Cannula 07/30 0800 97.6 78 18 122/80 18 0800 97 Room Air 07/30 0000 Nasal 2.0L Cannula 07/29 2357 98.1 93 12 106/74 96 Nasal 2.0L Cannula Intake & Output 07/30 1600 18 0800 07/30 0000 Intake Total 3574 199 6090 Output Total 750 Balance 1135 800 300 Intake, IV 375 600 600 Intake, Oral 760 200 450 Number 1 0 Bowel Movements Output, Urine 750 Physical Exam General Appearance: Alert, Oriented X3, Cooperative, No Acute Distress Cardiovascular: Normal S1, Normal S2 Lungs: Clear to Auscultation, Normal Air Movement Abdomen: Soft, No Tenderness Extremities: No Clubbing, No Cyanosis, No Edema Vascular: Normal Pulses Assessment/Plan Assessment: 61 yo M with pmh of mental retardation, functional at baseline, hypertension, hyperlipidemia, GERD, diverticulitis, BPH, Reid's esophagus, and sigmoid vesical fistula who presents today after being found on the floor in his apartment this morning. He does not recall the fall but endorses that he frequently feels lightheaded and dizzy in the morning. which he says feels like he is having anxiety attacks. He has laso had a couple of syncopal episodes this year already. He denies chest pain, blurred vision, palpitations, nausea, vomiting, abdominal pain, or weakness. According to the ER notes, when patient was brought to the hospital he had some right-sided weakness which seemed to have totally resolved while in the ED. He was previously admitted here at [place] [facility] in 2016 with episodes of dizziness and slurred speech and was treated for a TIA thought to be possibly a microinfarct as no positive lesion was evident on the MRI. He drinks 4 beers every night to help him sleep. Problem List 1. Possible TIA vs Seizures 2. Multiple unwitnessed syncopal episodes r/o Paroxysmal afib 3. HTN 4. HLD 5. Chronic Etoh Use Plan * Continue telemetry monitoring * IV Ativan as needed for seizures * Continue all home medication including lisinopril, aspirin, Plavix, statin, multivitamin, and the clonidine * Follow-up neuro recommendation * We will follow EEG * Cardio consult-to determine how long xarelto can be hled of or other alternatives that may not cause excessive bleeding * Ativan according to CIWA protocol * PT consult * Daily Orthostats -Negative today * Obtain a detailed PMH and current medical history from sister who is his POA in AM Diet -heart healthy diet DVT prophylaxis- ALP S//heparin CODE STATUS-full code Problem List: 1. Seizure 2. Syncope Pain Ratin Pain Location: Not applicable Pain Goal: Remain pain free Pain Plan: Avoid NSAIDs Tomorrow's Labs & Rationales: CBC for f/u DVT/Prophylaxis: mechanical, pharmacological
--- NOTE | 2016-07-30 13:08 | PN- Cardiology ---
Subjective Subjective: Feeling well. No chest pain. No palpitations. No diaphoresis. No lightheadedness or dizziness. Objective Vital Signs and I&Os Vital Signs Date Time Temp Pulse Resp B/P B/P Pulse O2 O2 Flow FiO2 Mean Ox Delivery Rate 07/30 1010 82 122/80 07/30 1010 82 122/80 07/30 1009 84 122/80 07/30 1000 82 07/30 0841 97 Room Air 07/30 0806 97.6 78 18 122/80 98 Nasal Cannula 07/30 0800 97.6 78 18 122/80 07/30 0800 97 Room Air 07/30 0000 Nasal 2.0L Cannula 07/29 2357 98.1 93 12 106/74 96 Nasal 2.0L Cannula 07/29 1611 98.4 87 16 108/80 98 Nasal 2.0L Cannula 07/29 1600 95 Nasal 2.0L Cannula Intake & Output 07/30 1600 07/30 0800 / 0000 07/29 1600 07/29 0800 07/29 0000 Intake Total 800 1050 1200 300 250 Output Total 750 300 Balance 800 300 900 300 250 Intake, IV 600 600 600 150 0 Intake, Oral 200 450 600 150 250 Number 0 0 0 Bowel Movements Output, Urine 750 300 Patient 120 lb Weight Physical Exam: Gen: The patient is in no acute distress HEENT: Normal nose, ears, and oropharynx. Pupils equal bilaterally. Conjunctiva normal. Neck: Supple with no JVD, no masses, and no thyromegaly Lungs: Clear to auscultation with normal respiratory effort Heart: RRR, S1, S2, no murmurs. No peripheral edema, 2+ pulses in the lower extremities bilaterally Abdomen: Soft, nontender, no masses. No hepatomegaly. No splenomegaly Extremities: No clubbing or cyanosis. Normal muscle strength in the upper and lower extremities Skin: Normal skin turgor with no skin ulcers or lesions noted. Neuro: Cranial nerves intact. Sensation intact Current Medications: Current Medications Sig/Donna Start time Last Medication Dose Route Stop Time Status Admin Acetaminophen 1,000 MG Q8P PRN 07/29 0100 AC N/A 1 UNIT IV Acetaminophen 650 MG Q6P PRN 07/28 2315 AC PO Aspirin 81 MG DAILY 07/28 2345 AC 07/30 PO 1009 Atorvastatin Calcium 80 MG 1700 07/29 1700 AC 07/29 PO 1705 Clopidogrel Bisulfate 75 MG DAILY 07/28 2359 AC 07/30 PO 1010 Docusate Sodium 100 MG DAILY NEEDED 07/28 2315 AC PO Enoxaparin Sodium 40 MG DAILY 07/29 1000 AC 07/30 SC 1010 Folic Acid 1 MG DAILY 07/29 1000 AC 07/30 PO 1010 Lisinopril 20 MG DAILY 07/29 1000 AC 07/30 PO 1010 Lorazepam 0 Q1P PRN 07/28 2330 AC 07/29 IV 0620 Melatonin 5 MG AT BEDTIME 07/28 2145 AC 07/29 PO 2149 Metoprolol Succinate 100 MG DAILY 07/29 1000 AC 07/30 PO 1010 Multivitamins 1 TAB DAILY 07/29 1000 AC 07/30 PO 1010 Omeprazole 40 MG DAILY AC 07/29 0700 AC 07/30 PO 0604 Sodium Chloride 1,000 ML Q13H 07/28 2330 DC 07/30 IV 0604 Tamsulosin HCl 0.4 MG DAILY 07/29 1000 AC 07/30 PO 1009 Thiamine HCl 100 MG DAILY 07/29 1000 AC 07/30 PO 1010 Results Last 48 Hrs of Labs/Mics: Laboratory Tests 07/30/16 0626: Anion Gap 8, Estimated GFR > 60, BUN/Creatinine Ratio 20.0 07/29/16 1630: Urine Color YEL, Urine Clarity CLEAR, Urine pH 6.0, Ur Specific [place] 1.020, Urine Protein NEG, Urine Ketones TRACE H, Urine Nitrite NEG, Urine Bilirubin NEG, Urine Urobilinogen 0.2, Ur Leukocyte Esterase NEG, Ur Microscopic EXAM NOT REQUIRED, Urine Hemoglobin NEG, Urine Glucose NEG 07/29/16 0600: Sodium Cancelled, Potassium Cancelled, Chloride Cancelled, Carbon Dioxide Cancelled, Anion Gap Cancelled, BUN Cancelled, Creatinine Cancelled, BUN/ Creatinine Ratio Cancelled, Triglycerides Cancelled, Cholesterol Cancelled, LDL Cholesterol, Calc Cancelled, HDL Cholesterol Cancelled, Cholesterol/HDL Ratio Cancelled, Vitamin B12 Cancelled, 25-OH Vitamin D Total Cancelled, TSH Cancelled , CBC w Diff Cancelled, WBC Cancelled, RBC Cancelled, Hgb Cancelled, Hct Cancelled, MCV Cancelled, MCH Cancelled, RDW Cancelled, Plt Count Cancelled, MPV Cancelled, PUBS MCHC Cancelled 07/29/16 0445: Anion Gap 16, Estimated GFR > 60, BUN/Creatinine Ratio 21.4, Total Bilirubin 0.5 , Direct Bilirubin 0.3, AST 40, ALT 69, Alkaline Phosphatase 119, Troponin I < 0.01, Total Protein 7.2, Albumin 4.2, Triglycerides 86, Cholesterol 139, LDL Cholesterol, Calc 66, HDL Cholesterol 56, Cholesterol/HDL Ratio 2, Vitamin B12 503, 25-OH Vitamin D Total 31.8, TSH 3.340, Prolactin 17.3, CBC w Diff NO MAN DIFF REQ, RBC 4.37 L, MCV 92.3, MCH 30.5, RDW 12.8, MPV 8.9, Gran % 73.8, Lymphocytes % 16.9 L, Monocytes % 8.5, Eosinophils % 0.5, Basophils % 0.3, Absolute Granulocytes 8.8 H, Absolute Lymphocytes 2.0, Absolute Monocytes 1.0 H, Absolute Eosinophils 0.1, Absolute Basophils 0, PUBS MCHC 33.0 07/29/16 0145: Anion Gap 14, Estimated GFR > 60, BUN/Creatinine Ratio 22.9, Phosphorus 3.7, Magnesium 1.8 Recent Imaging Studies: Carotid Doppler study 07/30/16: 1. RIGHT: No significant stenosis of the proximal right internal carotid artery corresponding to a 0-49% stenosis by velocity criteria. 2. LEFT: No significant stenosis of the proximal left internal carotid artery corresponding to a 0-49% stenosis by velocity criteria. 3. Antegrade flow is seen via the bilateral vertebral arteries. Chest x-ray 07/29/16: A small lateral left base patchy infiltrate is seen, with appearance suspicious for acute pneumonia. Recommend radiographic follow-up to clearance. Assessment/Plan Assessment/Plan Assessment: 1. Hypertension 2. History of TIA 3. Syncope, uncertain etiology. Differential diagnosis includes seizure versus vasovagal episode versus cardiogenic syncope Plan: * Monitor on telemetry * Check orthostatics * Echocardiogram pending * EEG pending * Continue cardiac medications Continue telemetry? Yes
--- NOTE | 2016-07-30 14:39 | PN- Neurology ---
Subjective Subjective: feeling well Review of Systems: alert no spells of alteration of consciousness or seizure in hospital Objective Vital Signs and I&Os Vital Signs Date Time Temp Pulse Resp B/P B/P Pulse O2 O2 Flow FiO2 Mean Ox Delivery Rate 07/30 1400 76 07/30 1200 90 07/30 1010 82 122/80 07/30 1010 82 122/80 07/30 1009 84 122/80 07/30 1000 82 07/30 0841 97 Room Air 07/30 0806 97.6 78 18 122/80 98 Nasal Cannula 07/30 0800 97.6 78 18 122/80 07/30 0800 97 Room Air 07/30 0000 Nasal 2.0L Cannula 07/29 2357 98.1 93 12 106/74 96 Nasal 2.0L Cannula 07/29 1611 98.4 87 16 108/80 98 Nasal 2.0L Cannula 07/29 1600 95 Nasal 2.0L Cannula Intake & Output 07/30 1600 07/30 0800 07/30 0000 07/29 1600 07/29 0800 07/29 0000 Intake Total 7386 809 9973 1200 300 250 Output Total 750 300 Balance 1135 800 300 900 300 250 Intake, IV 375 600 600 600 150 0 Intake, Oral 760 200 450 600 150 250 Number 1 0 0 0 Bowel Movements Output, Urine 750 300 Patient 120 lb Weight alert no dysphagia no focal weakness no facila weakness Current Medications: Current Medications Sig/Donna Start time Last Medication Dose Route Stop Time Status Admin Acetaminophen 1,000 MG Q8P PRN 07/29 0100 N/A 1 UNIT IV Acetaminophen 650 MG Q6P PRN 07/28 2315 AC PO Aspirin 81 MG DAILY 07/28 2345 AC 07/30 PO 1009 Atorvastatin Calcium 80 MG 1700 07/29 1700 AC 07/29 PO 1705 Clopidogrel Bisulfate 75 MG DAILY 07/28 2359 AC 07/30 PO 1010 Docusate Sodium 100 MG DAILY NEEDED 07/28 2315 AC PO Enoxaparin Sodium 40 MG DAILY 07/29 1000 AC 07/30 SC 1010 Folic Acid 1 MG DAILY 07/29 1000 AC 07/30 PO 1010 Lisinopril 20 MG DAILY 07/29 1000 AC 07/30 PO 1010 Lorazepam 0 Q1P PRN 07/28 2330 AC 07/29 IV 0620 Melatonin 5 MG AT BEDTIME 07/28 2145 AC 07/29 PO 2149 Metoprolol Succinate 100 MG DAILY 07/29 1000 AC 07/30 PO 1010 Multivitamins 1 TAB DAILY 07/29 1000 AC 07/30 PO 1010 Omeprazole 40 MG DAILY AC 07/29 0700 AC 07/30 PO 0604 Sodium Chloride 1,000 ML Q13H 07/28 2330 DC 07/30 IV 0604 Tamsulosin HCl 0.4 MG DAILY 07/29 1000 AC 07/30 PO 1009 Thiamine HCl 100 MG DAILY 07/29 1000 AC 07/30 PO 1010 Results Last 24 Hours of Lab Results: Laboratory Tests 07/30 07/29 0626 1630 Chemistry Sodium (137 - 145 mmol/L) 137 Potassium (3.5 - 5.1 mmol/L) 4.2 Chloride (98 - 107 mmol/L) 102 Carbon Dioxide (22 - 30 mmol/L) 27 Anion Gap (5 - 16) 8 BUN (9 - 20 mg/dL) 12 Creatinine (0.7 - 1.2 mg/dL) 0.6 L Estimated GFR (>60 ml/min) > 60 BUN/Creatinine Ratio (7 - 25 %) 20.0 Urines Urine Color (YEL,AMB,STR) YEL Urine Clarity (CLEAR) CLEAR Urine pH (5.0 - 8.0) 6.0 Ur Specific [place] (1.001 - 1.035) 1.020 Urine Protein (NEG,<30 MG/DL) NEG Urine Ketones (NEG) TRACE H Urine Nitrite (NEG) NEG Urine Bilirubin (NEG) NEG Urine Urobilinogen (0.1 - 1.0 EU/dl) 0.2 Ur Leukocyte Esterase (NEG) NEG Ur Microscopic EXAM NOT REQUIRED Urine Hemoglobin (NEG) NEG Urine Glucose (N MG/DL) NEG Assessment/Plan Assessment: syncope vs seizure Plan: EEG cardiac eval
[2016-07-30 15:51] VITALS: BP 118/78
[2016-07-30 23:00] VITALS: BP 132/78
--- NOTE | 2016-07-31 07:18 | PN-Observation ---
Observation Note Observation Note _ I have personally examined VINITA CABRERA. him disposition is uncertain at this time. Before a determination can be made, he requires continued observation for the following reasons Seizures, EEG pending, echo pending Assessment/Plan Assessment: 61 yo M with pmh of mental retardation, functional at baseline, hypertension, hyperlipidemia, GERD, diverticulitis, BPH, Reid's esophagus, and sigmoid vesical fistula who presents today after being found on the floor in his apartment this morning. He does not recall the fall but endorses that he frequently feels lightheaded and dizzy in the morning. which he says feels like he is having anxiety attacks. He has laso had a couple of syncopal episodes this year already. He denies chest pain, blurred vision, palpitations, nausea, vomiting, abdominal pain, or weakness. According to the ER notes, when patient was brought to the hospital he had some right-sided weakness which seemed to have totally resolved while in the ED. He was previously admitted here at [place] in 2016 with episodes of dizziness and slurred speech and was treated for a TIA thought to be possibly a microinfarct as no positive lesion was evident on the MRI. He drinks 4 beers every night to help him sleep. Problem List 1. Possible TIA vs Seizures 2. Multiple unwitnessed syncopal episodes r/o Paroxysmal afib 3. HTN 4. HLD 5. Chronic Etoh Use Plan * Continue telemetry monitoring * IV Ativan as needed for seizures * Continue all home medication including lisinopril, aspirin, Plavix, statin, multivitamin, and the clonidine * Follow-up neuro recommendation * We will follow EEG * Cardio consult-to determine how long xarelto can be hled of or other alternatives that may not cause excessive bleeding * Ativan according to CIWA protocol * PT consult * Orthostats negative Diet -heart healthy diet DVT prophylaxis- ALP S//heparin CODE STATUS-full code Problem List: 1. Seizure 2. Syncope 3. Sinus tachycardia Subjective Review of Systems Constitutional: Denies: chills, fever. Cardiovascular: Denies: chest pain, palpitations. Respiratory: Denies: cough, short of breath, sputum production. Gastrointestinal: Denies: abdominal pain, constipation, diarrhea, nausea, vomiting. Genitourinary: Denies: dysuria, frequency. Objective Last 24 Hrs of Vital Signs/I&O Vital Signs Date Time Temp Pulse Resp B/P B/P Pulse O2 O2 Flow FiO2 Mean Ox Delivery Rate 07/31 1004 95 110/80 07/31 0958 95 110/80 07/31 0800 97.7 87 20 132/84 95 Room Air 07/30 2300 97.9 83 20 132/78 96 Room Air 07/30 1800 77 07/30 1600 72 07/30 1551 97.8 76 18 118/78 97 Room Air 07/30 1400 76 07/30 1200 90 Intake & Output 07/31 1600 07/31 0800 07/31 0000 Intake Total 100 850 Output Total Balance 100 850 Intake, IV 0 0 Intake, Oral 100 850 Number 0 0 Bowel Movements Physical Exam General Appearance: Alert, Oriented X3, Cooperative Cardiovascular: Regular Rate, Normal S1, Normal S2 Lungs: Clear to Auscultation, Normal Air Movement Abdomen: Normal Bowel Sounds, Soft, No Tenderness Extremities: No Clubbing, No Cyanosis, No Edema
[2016-07-31 08:00] VITALS: BP 132/84
[2016-07-31 08:09] LABS: ABSOLUTE BASOPHIL COUNT 0.1 /CUMM (0.0-0.2); ABSOLUTE EOSINOPHIL COUNT 0.2 /CUMM (0.0-0.7); ABSOLUTE GRANULOCYTE CT 5.1 /CUMM (1.4-6.5); ABSOLUTE LYMPH COUNT 2.2 /CUMM (1.2-3.4); ABSOLUTE MONOCYTE COUNT 0.9 /CUMM (0.10-0.60); BASOPHIL % 0.6 % (0.0-2.0); EOSINOPHIL % 1.9 % (0-5); GRANULOCYTE % 60.7 % (42.2-75.2); MEAN CORPUSCULAR HGB 30.6 PG (27.0-31.0); MEAN CORPUSCULAR VOLUME 92.7 FL (80.0-94.0); MEAN PLATELET VOLUME 9.4 FL (7.4-10.4); PLATELET COUNT 225 /CUMM (130-400); RBC DISTRIBUTION WIDTH 13.1 % (11.5-14.5); RED BLOOD CELL CT 4.21 /CUMM (4.70-6.10); WHITE BLOOD CELL COUNT 8.4 /CUMM (4.8-10.8)
[2016-07-31 09:58] VITALS: BP 110/80
--- NOTE | 2016-07-31 10:05 | NUR ---
NOTIFIED COAGULATING BATH OPERATOR DR TSAI #[id number] OF CURRENT BP 110/80, P 95. PER COAGULATING BATH OPERATOR OKAY TO GIVE FLOMAX, HOLD LISINOPRIL AND METOPROLOL XL FOR NOW AND RECHECK BP/P LATER THIS AFTERNOON.
--- NOTE | 2016-07-31 10:47 | ECHOCARDIOGRAM REPORT ---
VINITA CABRERA Age: 61 : 1955 Gender: M Exam Date: 07/30/2016 09:21 Exam Location: [facility] Ht (in): 66 Wt (lb): 120 BSA: 1.59 BP: 106 / 74 Ordering Physician: SUN TSAI MD Referring Physician: Luis Peña MD Technologist: Pretty Barnhart [facility] Room Number: 182 Indications: CHEST PAIN Rhythm: Sinus Technical Quality: Good FINDINGS Left Ventricle Normal size left ventricle. Normal left ventricular wall thickness. Left ventricular ejection fraction is estimated at >60 %. No obvious regional wall motion abnormalities. Right Ventricle Normal right ventricular size and function. Right Atrium Normal right atrial size. Left Atrium Mild left atrial dilatation. Mitral Valve Mild mitral annular calcification. Mild mitral regurgitation. Aortic Valve Structurally normal trileaflet aortic valve. No aortic stenosis. No aortic regurgitation. Tricuspid Valve Tricuspid valve not well visualized, grossly normal. Mild tricuspid regurgitation. No evidence of pulmonary hypertension. Pulmonic Valve Pulmonic valve not well visualized, grossly normal. Trace pulmonic regurgitation. Pericardium No pericardial effusion. Great Vessels Normal size aortic root. CONCLUSIONS Normal size left ventricle. Left ventricular ejection fraction is estimated at >60 %. Mild left atrial dilatation. Mild mitral regurgitation. Mild tricuspid regurgitation. Trace pulmonic regurgitation. Luis Peña M.D. (Electronically Signed) Final Date: 31 July 2016 10:46 MEASUREMENTS (Male / Female) Normal Values 2D ECHO LV Diastolic Diameter PLAX 4.0 cm 4.2 - 5.9 / 3.9 - 5.3 cm LV Systolic Diameter PLAX 2.7 cm 2.1 - 4.0 cm LV Fractional Shortening PLAX 32.5 % 25 - 46 % LV Ejection Fraction 2D Teich 61.4 % IVS Diastolic Thickness 1.0 cm LVPW Diastolic Thickness 0.9 cm LV Relative Wall Thickness 0.5 RV Internal Dim ED PLAX 2.7 cm 1.9 - 3.8 cm LVOT Diameter 2.0 cm Aortic Root Diameter 2.9 cm LA Systolic Diameter LX 4.1 cm 3.0 - 4.0 / 2.7 - 3.8 cm LA Volume 22.0 cm 18 - 58 / 22 - 52 cm Ascending Aorta Diameter 3.3 cm DOPPLER AV Peak Velocity 126.0 cm/s AV Peak Gradient 6.4 mmHg AV Mean Velocity 83.5 cm/s AV Mean Gradient 3.0 mmHg AV Velocity Time Integral 23.0 cm LVOT Peak Velocity 117.0 cm/s LVOT Peak Gradient 5.5 mmHg LVOT Mean Velocity 69.2 cm/s LVOT Mean Gradient 2.0 mmHg LVOT Velocity Time Integral 20.5 cm LVOT Stroke Volume 64.4 cm AV Area Cont Eq vti 2.8 cm AV Area Cont Eq pk 2.9 cm MV Peak Velocity 95.6 cm/s MV Peak Gradient 3.7 mmHg MV Mean Velocity 54.4 cm/s MV Mean Gradient 1.0 mmHg Mitral E Point Velocity 81.4 cm/s Mitral A Point Velocity 84.9 cm/s Mitral E to A Ratio 1.0 MV PHT Velocity 72.1 cm/s MV Deceleration [place] 273.0 cm/s MV Pressure Half Time 79.2 ms MV Area PHT 2.8 cm MV Deceleration Time 217.0 ms TR Peak Velocity 229.0 cm/s TR Peak Gradient 21.0 mmHg Right Atrial Pressure 5.0 mmHg Pulmonary Artery Systolic Pressu 26.0 mmHg Right Ventricular Systolic Press 26.0 mmHg PV Peak Velocity 93.4 cm/s PV Peak Gradient 3.5 mmHg PV Mean Velocity 64.7 cm/s PV Mean Gradient 2.0 mmHg PV Velocity Time Integral 18.1 cm LV E' Lateral Velocity 8.4 cm/s Mitral E to LV E' Lateral Ratio 9.7 LV E' Septal Velocity 9.0 cm/s Mitral E to LV E' Septal Ratio 9.1
--- NOTE | 2016-07-31 11:34 | PN- Cardiology ---
Subjective Subjective: The patient is comfortable. No chest pain. No palpitations. No diabetes. No lightheadedness or dizziness. Objective Vital Signs and I&Os Vital Signs Date Time Temp Pulse Resp B/P B/P Pulse O2 O2 Flow FiO2 Mean Ox Delivery Rate 07/31 1004 95 110/80 07/31 0958 95 110/80 07/31 0800 97.7 87 20 132/84 95 Room Air 07/30 2300 97.9 83 20 132/78 96 Room Air 07/30 1800 77 07/30 1600 72 07/30 1551 97.8 76 18 118/78 97 Room Air 07/30 1400 76 07/30 1200 90 Intake & Output 07/31 1600 07/31 0800 07/31 0000 07/30 1600 07/30 0800 07/30 0000 Intake Total 982 594 2669 800 1050 Output Total 750 Balance 397 299 8984 800 300 Intake, IV 0 0 375 600 600 Intake, Oral 100 850 760 200 450 Number 0 0 1 0 Bowel Movements Output, Urine 750 Physical Exam: Gen: The patient is in no acute distress HEENT: Normal nose, ears, and oropharynx. Pupils equal bilaterally. Conjunctiva normal. Neck: Supple with no JVD, no masses, and no thyromegaly Lungs: Clear to auscultation with normal respiratory effort Heart: RRR, S1, S2, no murmurs. No peripheral edema, 2+ pulses in the lower extremities bilaterally Abdomen: Soft, nontender, no masses. No hepatomegaly. No splenomegaly Extremities: No clubbing or cyanosis. Normal muscle strength in the upper and lower extremities Skin: Normal skin turgor with no skin ulcers or lesions noted. Neuro: Cranial nerves intact. Sensation intact Current Medications: Current Medications Sig/Donna Start time Last Medication Dose Route Stop Time Status Admin Acetaminophen 1,000 MG Q8P PRN 07/29 0100 AC N/A 1 UNIT IV Acetaminophen 650 MG Q6P PRN 07/28 2315 AC PO Aspirin 81 MG DAILY 07/28 2345 AC 07/31 PO 0952 Atorvastatin Calcium 80 MG 1700 07/29 1700 AC 07/30 PO 1616 Clopidogrel Bisulfate 75 MG DAILY 07/28 2359 AC 07/31 PO 0952 Docusate Sodium 100 MG DAILY NEEDED 07/28 2315 AC PO Enoxaparin Sodium 40 MG DAILY 07/29 1000 AC 07/31 SC 0955 Folic Acid 1 MG DAILY 07/29 1000 AC 07/31 PO 0952 Lisinopril 20 MG DAILY 07/29 1000 AC 07/30 PO 1010 Lorazepam 0 Q1P PRN 07/28 2330 AC 07/29 IV 0620 Melatonin 5 MG AT BEDTIME 07/28 2145 AC 07/30 PO 2057 Metoprolol Succinate 100 MG DAILY 07/29 1000 AC 07/30 PO 1010 Multivitamins 1 TAB DAILY 07/29 1000 AC 07/31 PO 0952 Omeprazole 40 MG DAILY AC 07/29 0700 AC 07/31 PO 0640 Tamsulosin HCl 0.4 MG DAILY 07/29 1000 AC 07/31 PO 1004 Thiamine HCl 100 MG DAILY 07/29 1000 AC 07/31 PO 0952 Results Last 48 Hrs of Labs/Mics: Laboratory Tests 07/31/16 0635: CBC w Diff NO MAN DIFF REQ, RBC 4.21 L, MCV 92.7, MCH 30.6, RDW 13.1, MPV 9.4, Gran % 60.7, Lymphocytes % 26.1, Monocytes % 10.7 H, Eosinophils % 1.9, Basophils % 0.6, Absolute Granulocytes 5.1, Absolute Lymphocytes 2.2, Absolute Monocytes 0.9 H, Absolute Eosinophils 0.2, Absolute Basophils 0.1, PUBS MCHC 33.0 07/30/16 0626: Anion Gap 8, Estimated GFR > 60, BUN/Creatinine Ratio 20.0 07/29/16 1630: Urine Color YEL, Urine Clarity CLEAR, Urine pH 6.0, Ur Specific [place] 1.020, Urine Protein NEG, Urine Ketones TRACE H, Urine Nitrite NEG, Urine Bilirubin NEG, Urine Urobilinogen 0.2, Ur Leukocyte Esterase NEG, Ur Microscopic EXAM NOT REQUIRED, Urine Hemoglobin NEG, Urine Glucose NEG Microbiology 07/29 1630 URINE ROUT: Urine Culture - COMP Recent Imaging Studies: Echocardiogram 07/31/16: Normal size left ventricle. Left ventricular ejection fraction is estimated at >60 %. Mild left atrial dilatation. Mild mitral regurgitation. Mild tricuspid regurgitation. Trace pulmonic regurgitation. Assessment/Plan Assessment/Plan Assessment: 1. Hypertension 2. History of TIA 3. Syncope, uncertain etiology. Differential diagnosis includes seizure versus vasovagal episode versus cardiogenic syncope 4. Normal left renal function on echocardiogram Plan: * No cardiac abnormalities found. * Continue current cardiac medications. * EEG pending. Continue telemetry? Yes
[2016-07-31 12:00] VITALS: BP 130/88
[2016-07-31 12:39] VITALS: BP 130/88
--- NOTE | 2016-07-31 13:47 | PN- Att Addend ---
Attending Addendum Attending Brief Note Patient seen and examined. Plan of care discussed with the medical team and the patient. Available lab work and radiology test reports were reviewed. Patient was found be sitting in chair. He appears slightly confused but does not appear to be in any distress. He denies any chest pain recent fever chills nausea vomiting or headaches. No further reported seizure episodes. Vital Signs Date Time Temp Pulse Resp B/P B/P Pulse O2 O2 Flow FiO2 Mean Ox Delivery Rate 07/31 1239 96 130/88 07/31 1200 96 20 130/88 07/31 1004 95 110/80 07/31 0958 95 110/80 07/31 0800 97.7 87 20 132/84 95 Room Air 07/30 2300 97.9 83 20 132/78 96 Room Air 07/30 1800 77 07/30 1600 72 07/30 1551 97.8 76 18 118/78 97 Room Air 07/30 1400 76 Intake & Output 07/31 1600 07/31 0800 07/31 0000 Intake Total 100 850 Output Total Balance 100 850 Intake, IV 0 0 Intake, Oral 100 850 Number 0 0 Bowel Movements Exam: General: Patient awake alert oriented without any distress but appears slightly confused CVS: S1 plus S2 without any murmur or gallops Chest: Few scattered crepitation without any wheeze. There is no respiratory distress. Abdomen: Soft nontender, bowel sound present, no guarding or rebound [employer] WORKERS: Awake alert oriented without any focal neuro deficit and follows command appropriately; he does appear to be somewhat forgetful Extremities: No edema; no clubbing or cyanosis noted Laboratory Tests 07/31 0635 Hematology CBC w Diff NO MAN DIFF REQ WBC (4.8 - 10.8 /CUMM) 8.4 RBC (4.70 - 6.10 /CUMM) 4.21 L Hgb (14.0 - 18.0 G/DL) 12.9 L Hct (42 - 52 %) 39.0 L MCV (80.0 - 94.0 FL) 92.7 MCH (27.0 - 31.0 PG) 30.6 RDW (11.5 - 14.5 %) 13.1 Plt Count (130 - 400 /CUMM) 225 MPV (7.4 - 10.4 FL) 9.4 Gran % (42.2 - 75.2 %) 60.7 Lymphocytes % (20.5 - 51.1 %) 26.1 Monocytes % (1.7 - 9.3 %) 10.7 H Eosinophils % (0 - 5 %) 1.9 Basophils % (0.0 - 2.0 %) 0.6 Absolute Granulocytes (1.4 - 6.5 /CUMM) 5.1 Absolute Lymphocytes (1.2 - 3.4 /CUMM) 2.2 Absolute Monocytes (0.10 - 0.60 /CUMM) 0.9 H Absolute Eosinophils (0.0 - 0.7 /CUMM) 0.2 Absolute Basophils (0.0 - 0.2 /CUMM) 0.1 PUBS MCHC (33.0 - 37.0 G/DL) 33.0 Bilateral carotid Doppler 1. RIGHT: No significant stenosis of the proximal right internal carotid artery corresponding to a 0-49% stenosis by velocity criteria. 2. LEFT: No significant stenosis of the proximal left internal carotid artery corresponding to a 0-49% stenosis by velocity criteria. 3. Antegrade flow is seen via the bilateral vertebral arteries. Echocardiogram Normal size left ventricle. Left ventricular ejection fraction is estimated at >60 %. Mild left atrial dilatation. Mild mitral regurgitation. Mild tricuspid regurgitation. Trace pulmonic regurgitation. Assessment * Proceed with EEG * The abnormal we will start patient on Keppra * Ambulate with assist * begin discharge planning * DC telemetry
--- NOTE | 2016-07-31 15:43 | NUR ---
PHYSICAL THERAPY: RECIEVED CONSULT ORDERS, REVIEWED CHART. Pt WAS PREVIOUSLY SEEN AMBULATING/WONDERING IN THE HALLWAY OVER THE WEEKEND AND PLACED ON HOLD. UPON SPEAKING TO RN TODAY, STATES Pt IS IMPULSIVE HOWEVER DOES NOT REQUIRE ASSIST FOR WEAKNESS/DEFICITS. P.T. NOT INDICATED AT THIS TIME, WILL NOT FOLLOW.
[2016-07-31 16:00] VITALS: BP 110/60
[2016-07-31 16:02] VITALS: BP 110/60
--- NOTE | 2016-07-31 16:15 | Patient Discharge Instructions ---
Discharge Instructions General Discharge Information You were seen/treated for: 1. Possible TIA vs Seizures 2. Multiple unwitnessed syncopal episodes r/o Paroxysmal afib 3. HTN 4. HLD 5. Chronic Etoh Use Special Instructions: You have been started on a new medication TRAZADONE to help you sleep, take half a pill before going to sleep, please make sure you do not drink while taking this medication. Please follow up with primary care physician, neurologist a follow up 24 hour ambulatory and overnight EEG recording is recommended, follow up with corporate receptionist in one week. Diet Recommended Diet: Heart Healthy Activity Activity Self Limited: Yes Acute Coronary Syndrome Inclusion Criteria At DC or during hospital stay patient has or had the following: ACS DIAGNOSIS No Discharge Core Measures Meds if any: Prescribed or Continued at Discharge Meds if any: NOT Prescribed or Continued at Discharge Congestive Heart Failure Inclusion Criteria At DC or during hospital stay patient has or had the following: CHF DIAGNOSIS No Discharge Core Measures Meds if any: Prescribed or Continued at Discharge Meds if any: NOT Prescribed or Continued at Discharge Cerebrovascular accident Inclusion Criteria At DC or during hospital stay patient has or had the following: CVA/TIA Diagnosis No Discharge Core Measures Meds if any: Prescribed or Continued at Discharge Meds if any: NOT Prescribed or Continued at Discharge Venous thromboembolism Inclusion Criteria VTE Diagnosis No VTE Type NONE VTE Confirmed by (Test) NONE Discharge Core Measures - Per Current guidelines, there needs to be overlap - treatment for the first 5 days of Warfarin therapy. - If discharged on Warfarin prior to 5 days of - overlap therapy, the patient will need to be - assessed for post discharge needs including - *Post discharge parental anticoagulation - *Warfarin and/or parental anticoagulation education - *Follow up date to check INR post discharge At least 5 days overlap therapy as Inpatient No Meds if any: Prescribed or Continued at Discharge Note: Overlap Therapy is Warfarin and Anticoagulant Meds if any: NOT Prescribed or Continued at Discharge
--- NOTE | 2016-07-31 19:29 | Event Note ---
Event Note Event Note: Patient is to be discharged pending results of EEG. At this time EEG is not reported and there are not formal recommendations from neurology that patient is clear for discharge. He is to be observed overnight pending the results of this study and the neurology team.
[2016-08-01 01:55] VITALS: BP 132/84
--- NOTE | 2016-08-01 07:18 | PN-Observation ---
Observation Note Observation Note _ I have personally examined VINITA CABRERA. him disposition is uncertain at this time. Before a determination can be made, he requires continued observation for the following reasons EEG did not show any evidence of seizure activity. Patient to be d/c today Assessment/Plan Assessment: 61 yo M with pmh of mental retardation, functional at baseline, hypertension, hyperlipidemia, GERD, diverticulitis, BPH, Reid's esophagus, and sigmoid vesical fistula who presents today after being found on the floor in his apartment this morning. He does not recall the fall but endorses that he frequently feels lightheaded and dizzy in the morning. which he says feels like he is having anxiety attacks. He has laso had a couple of syncopal episodes this year already. He denies chest pain, blurred vision, palpitations, nausea, vomiting, abdominal pain, or weakness. According to the ER notes, when patient was brought to the hospital he had some right-sided weakness which seemed to have totally resolved while in the ED. He was previously admitted here at [facility] in 2016 with episodes of dizziness and slurred speech and was treated for a TIA thought to be possibly a microinfarct as no positive lesion was evident on the MRI. He drinks 4 beers every night to help him sleep. Problem List 1. Possible TIA vs Seizures 2. Multiple unwitnessed syncopal episodes r/o Paroxysmal afib 3. HTN 4. HLD 5. Chronic Etoh Use Plan * Continue telemetry monitoring * IV Ativan as needed for seizures * Continue all home medication including lisinopril, aspirin, Plavix, statin, multivitamin, and the clonidine * no evidence of seizure on EEG * Ativan according to CIWA protocol * Orthostats negative Diet -heart healthy diet DVT prophylaxis- ALP S//heparin CODE STATUS-full code Problem List: 1. Seizure Subjective Follow-up For: 1. Possible TIA vs Seizures 2. Multiple unwitnessed syncopal episodes r/o Paroxysmal afib 3. HTN 4. HLD 5. Chronic Etoh Use Subjective: Seen and examined, lying comfartable in bed, no acute distress. EEG showed no evidence of eizure like activity. Patient to be d/c today, advised to follow up with nerology. Counselled on cutting down on drinking alcohol, started on trazadone to help with insomnia. Review of Systems Constitutional: Reports: see HPI. Objective Last 24 Hrs of Vital Signs/I&O Vital Signs Date Time Temp Pulse Resp B/P B/P Pulse O2 O2 Flow FiO2 Mean Ox Delivery Rate 08/01 1009 104 124/80 08/01 0833 96.6 87 18 124/66 93 08/01 0155 98.5 75 20 132/84 95 Room Air 07/31 1800 86 07/31 1602 98.1 80 24 110/60 98 Room Air 07/31 1600 80.0 80 24 110/60 07/31 1400 91 07/31 1343 86 130/88 07/31 1343 86 130/88 07/31 1239 96 130/88 07/31 1200 96 20 130/88 Intake & Output 08/01 1600 08/01 0800 08/01 0000 Intake Total 200 600 Output Total Balance 200 600 Intake, Oral 200 600 Number 2 1 Bowel Movements Physical Exam General Appearance: Alert, Oriented X3, Cooperative Cardiovascular: Regular Rate, Normal S1, Normal S2, No Murmurs Lungs: Clear to Auscultation, Normal Air Movement Abdomen: Normal Bowel Sounds, Soft, No Tenderness Extremities: No Clubbing, No Cyanosis, No Edema
[2016-08-01 08:33] VITALS: BP 124/66
--- NOTE | 2016-08-01 08:57 | ELECTROENCEPHALOGRAM REPORT ---
Electroencephalogram Report Electroencephalogram Results Date of service: 07/31/16 Attending MD: ELI GONZALEZ MD Stock Broker Supervisor: Stephanie Muhammad EEG Number: [id number] Test Utilizes: 10-20 system, 21 lead 18 channel digital recording Pertinent Hx/Physical/Neuro Findings/Clin Diagnosis: Unresponsive episodes rule out seizures Inpatient Medications: Current Medications Sig/Donna Start time Last Medication Dose Route Stop Time Status Admin Acetaminophen 1,000 MG Q8P PRN 07/29 0100 AC N/A 1 UNIT IV Acetaminophen 650 MG Q6P PRN 07/28 2315 AC PO Aspirin 81 MG DAILY 07/28 2345 AC 07/31 PO 0952 Atorvastatin Calcium 80 MG 1700 07/29 1700 AC 07/31 PO 1855 Clopidogrel Bisulfate 75 MG DAILY 07/28 2359 AC 07/31 PO 0952 Docusate Sodium 100 MG DAILY NEEDED 07/28 2315 AC PO Enoxaparin Sodium 40 MG DAILY 07/29 1000 AC 07/31 SC 0955 Folic Acid 1 MG DAILY 07/29 1000 AC 07/31 PO 0952 Lisinopril 20 MG DAILY 07/29 1000 AC 07/31 PO 1343 Lorazepam 0 Q1P PRN 07/31 1630 AC IV Lorazepam 0 Q1P PRN 07/28 2330 AC 07/29 IV 0620 Melatonin 5 MG AT BEDTIME 07/28 2145 AC 07/31 PO 2053 Metoprolol Succinate 100 MG DAILY 07/29 1000 AC 07/31 PO 1343 Multivitamins 1 TAB DAILY 07/29 1000 AC 07/31 PO 0952 Omeprazole 40 MG DAILY AC 07/29 0700 AC 08/01 PO 0619 Tamsulosin HCl 0.4 MG DAILY 07/29 1000 AC 07/31 PO 1004 Thiamine HCl 100 MG DAILY 07/29 1000 AC 07/31 PO 0952 Interpretation: The record was done in drowsiness and sleep with little if any fully waking background. In drowsiness there is low to moderate amplitude theta activity with some irregular low amplitude posterior alpha frequency noted intermittently and frontally dominant very low amplitude beta. In sleep there is intermixed higher amplitude theta and delta activity with vertex waves and K complexes of sleep as well as some spindling. In sleep generally immediately following a vertex wave are seen intermittent left or right independent sharp waves. No abnormal motor activity was noted by the construction technician Impression: Probably normal in the states of drowsiness and sleep. Equivocation is due to independent left and right sharp wave discharges which are closely linked in time to vertex waves of sleep and never seen in other portions of the record which are probably a normal variant or potentially epileptiform. a 24 hour ambulatory and overnight EEG recording is recommended
[2016-08-01] MEDS ORDERED: TRAZODONE HCL50 M1 PO ×2 (09:31→11:02)
[2016-08-01 10:09] VITALS: BP 124/80
--- NOTE | 2016-08-01 10:36 | PN- Att Addend ---
Attending Addendum Attending Brief Note Patient seen and examined. Plan of care discussed with the medical team and the patient. Available lab work and radiology test reports were reviewed. Patient was found be sitting in chair. He appears less confused and does not appear to be in any distress. He denies any chest pain recent fever chills nausea vomiting or headaches. No further reported seizure episodes. Vital Signs Date Time Temp Pulse Resp B/P B/P Pulse O2 O2 Flow FiO2 Mean Ox Delivery Rate 08/01 1009 104 124/80 08/01 0833 96.6 87 18 124/66 93 08/01 0155 98.5 75 20 132/84 95 Room Air 07/31 1800 86 07/31 1602 98.1 80 24 110/60 98 Room Air 07/31 1600 80.0 80 24 110/60 07/31 1400 91 07/31 1343 86 130/88 07/31 1343 86 130/88 07/31 1239 96 130/88 07/31 1200 96 20 130/88 Intake & Output 08/01 1600 08/01 0800 08/01 0000 Intake Total 200 600 Output Total Balance 200 600 Intake, Oral 200 600 Number 2 1 Bowel Movements Exam: General: Patient awake alert oriented without any distress but appears slightly confused CVS: S1 plus S2 without any murmur or gallops Chest: Few scattered crepitation without any wheeze. There is no respiratory distress. Abdomen: Soft nontender, bowel sound present, no guarding or rebound COMPLAINT INVESTIGATIONS OFFICER: Awake alert oriented without any focal neuro deficit and follows command appropriately; he does appear to be somewhat forgetful Extremities: No edema; no clubbing or cyanosis noted Assessment 1. Possible TIA vs Seizures 2. Multiple unwitnessed syncopal episodes r/o Paroxysmal afib 3. HTN 4. HLD 5. Chronic Etoh Use Plan: * Follow up report of EEG * If the EEG is abnormal we will start patient on Keppra * Since patient stated that he uses alcohol at night to sleep we will start on low-dose trazodone to help with sleep. Patient was counseled to cut down his drinking. At this point no signs of active alcohol Withdrawal. * Plan for discharge home today
--- NOTE | 2016-08-01 11:00 | PN- Cardiology ---
Subjective Subjective: The patient is comfortable with no current complaints. No chest pain. No shortness of breath. No palpitations. No diaphoresis. Objective Vital Signs and I&Os Vital Signs Date Time Temp Pulse Resp B/P B/P Pulse O2 O2 Flow FiO2 Mean Ox Delivery Rate 08/01 1009 104 124/80 08/01 0833 96.6 87 18 124/66 93 08/01 0155 98.5 75 20 132/84 95 Room Air 07/31 1800 86 07/31 1602 98.1 80 24 110/60 98 Room Air 07/31 1600 80.0 80 24 110/60 07/31 1400 91 07/31 1343 86 130/88 07/31 1343 86 130/88 07/31 1239 96 130/88 07/31 1200 96 20 130/88 Intake & Output 08/01 1600 08/01 0800 08/01 0000 07/31 1600 07/31 0800 07/31 0000 Intake Total 200 600 760 100 850 Output Total Balance 200 600 760 100 850 Intake, IV 0 0 Intake, Oral 200 600 760 100 850 Number 2 1 0 0 Bowel Movements Physical Exam: Gen: The patient is in no acute distress HEENT: Normal nose, ears, and oropharynx. Pupils equal bilaterally. Conjunctiva normal. Neck: Supple with no JVD, no masses, and no thyromegaly Lungs: Clear to auscultation with normal respiratory effort Heart: RRR, S1, S2, no murmurs. No peripheral edema, 2+ pulses in the lower extremities bilaterally Abdomen: Soft, nontender, no masses. No hepatomegaly. No splenomegaly Extremities: No clubbing or cyanosis. Normal muscle strength in the upper and lower extremities Skin: Normal skin turgor with no skin ulcers or lesions noted. Current Medications: Current Medications Sig/Donna Start time Last Medication Dose Route Stop Time Status Admin Acetaminophen 1,000 MG Q8P PRN 07/29 0100 AC N/A 1 UNIT IV Acetaminophen 650 MG Q6P PRN 07/28 2315 AC PO Aspirin 81 MG DAILY 07/28 2345 AC 08/01 PO 1009 Atorvastatin Calcium 80 MG 1700 07/29 1700 AC 07/31 PO 1855 Clopidogrel Bisulfate 75 MG DAILY 07/28 2359 AC 08/01 PO 1009 Docusate Sodium 100 MG DAILY NEEDED 07/28 2315 AC PO Enoxaparin Sodium 40 MG DAILY 07/29 1000 AC 08/01 SC 1011 Folic Acid 1 MG DAILY 07/29 1000 AC 08/01 PO 1009 Lisinopril 20 MG DAILY 07/29 1000 AC 08/01 PO 1009 Lorazepam 0 Q1P PRN 07/31 1630 AC IV Lorazepam 0 Q1P PRN 07/28 2330 AC 07/29 IV 0620 Melatonin 5 MG AT BEDTIME 07/28 2145 AC 07/31 PO 2053 Metoprolol Succinate 100 MG DAILY 07/29 1000 AC 08/01 PO 1009 Multivitamins 1 TAB DAILY 07/29 1000 AC 08/01 PO 1009 Omeprazole 40 MG DAILY AC 07/29 0700 AC 08/01 PO 0619 Tamsulosin HCl 0.4 MG DAILY 07/29 1000 AC 08/01 PO 1009 Thiamine HCl 100 MG DAILY 07/29 1000 AC 08/01 PO 1009 Results Last 48 Hrs of Labs/Mics: Laboratory Tests 07/31/16 0635: CBC w Diff NO MAN DIFF REQ, RBC 4.21 L, MCV 92.7, MCH 30.6, RDW 13.1, MPV 9.4, Gran % 60.7, Lymphocytes % 26.1, Monocytes % 10.7 H, Eosinophils % 1.9, Basophils % 0.6, Absolute Granulocytes 5.1, Absolute Lymphocytes 2.2, Absolute Monocytes 0.9 H, Absolute Eosinophils 0.2, Absolute Basophils 0.1, PUBS MCHC 33.0 Recent Imaging Studies: Echocardiogram 07/30/16: Normal size left ventricle. Left ventricular ejection fraction is estimated at >60 %. Mild left atrial dilatation. Mild mitral regurgitation. Mild tricuspid regurgitation. Trace pulmonic regurgitation. EEG 08/01/16: Probably normal in the states of drowsiness and sleep. Equivocation is due to independent left and right sharp wave discharges which are closely linked in time to vertex waves of sleep and never seen in other portions of the record which are probably a normal variant or potentially epileptiform. a 24 hour ambulatory and overnight EEG recording is recommended Assessment/Plan Assessment/Plan Assessment: 1. Hypertension 2. History of TIA 3. Syncope, uncertain etiology. Differential diagnosis includes seizure versus vasovagal episode versus cardiogenic syncope 4. Normal left ventricular on echocardiogram Plan: * No cardiac abnormalities found. * Continue current cardiac medications. * Probably normal EEG * Follow up in 2 weeks. Continue telemetry? Yes
--- NOTE | 2016-08-01 12:38 | NUR ---
NOTIFIED MILL LABORER DR TSAI OF BOWEL MOVEMENTS OVERNIGHT. SEMILOOSE STOOL, LIGHT BROWN WITH NO BLOOD NOTED. PER [employer]ILL LABORER WILL CONTINUE TO MONITOR.
== END 2016-08-01 15:30 | disposition home health service (06) ==
LOC: ERH 09:46 → 1NO 17:33 → ERHI 17:33 → ENRESERV 18:59 → ENTRNSPT 19:32 → CMPTRNSPT 19:45 → 1NO 20:10 → ENPENDDIS 08-01 11:04 → 1NO 08-01 11:07
PROVIDERS: Emergency Medicine; Internal Medicine; Internal Medicine Adolescent Medicine; ADMIT Internal Medicine
DX: R55 Syncope and collapse (principal); Z86.73 Personal history of transient ischemic attack (TIA), and cerebral infarction without residual deficits; I10 Essential (primary) hypertension; E78.5 Hyperlipidemia, unspecified; K57.90 Diverticulosis of intestine, part unspecified, without perforation or abscess without bleeding; N40.0 Benign prostatic hyperplasia without lower urinary tract symptoms; K21.9 Gastro-esophageal reflux disease without esophagitis; F79 Unspecified intellectual disabilities
CPT/HCPCS: 1328; 1530; 1748; 70551; 36415; 81003; 82436; 87086; 93005; 93010; 93306; 95816; 96372; 96374; G0378; J1650; J3490; J7508